=== PATIENT | male | born 1930 | race Caucasian/White ===

== ENCOUNTER 2017-03-31 16:38 | Inpatient (IN) ==
--- NOTE | 2017-03-31 17:08 | EKG Report ---
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
[2017-03-31] MEDS ORDERED: ENOXAPARIN 100 MG/ML SYRINGE SUBCUT STA (17:20)
[2017-03-31] MEDS ORDERED: ASPIRIN 325 MG TABLET PO STA (17:20)
[2017-03-31] MEDS ORDERED: METOPROLOL TARTRATE 5 MG/5 ML VIAL IV STA (17:25)
[2017-03-31] MEDS ORDERED: NITROGLYCERIN 2% OINT 1 INCH/GM PACK TOP STA (17:25)
[2017-03-31] MEDS ORDERED: ALUM/MAG/SIMETH/LIDO VISC 1:1 30 ML BOTTLE PO STA (17:34)
[2017-03-31] MEDS ORDERED: FUROSEMIDE 40 MG/4 ML VIAL IV STA (17:34)
[2017-03-31] MEDS ORDERED: ALBUTEROL/IPRATROPIUM 3 ML NEB RESP TX STA (17:34)
[2017-03-31] MEDS ORDERED: MORPHINE 2 MG/1 ML SYRINGE IV STA (17:34)
[2017-03-31] MEDS ORDERED: ONDANSETRON 4 MG/2 ML VIAL IV STA ×2 (17:34→21:40)
[2017-03-31 17:45] LABS: Basophils % 0.5 % (0.0-0.8); Eosinophils # 0.2 10*3/uL (0.0-0.87); Eosinophils % 1.7 % (0.00-10.9); Hematocrit 39.4 VOL% (42.0-52.0); Immature Granulocytes % 0.5 %; Immature Granulocytes Absolute 0.04 #; Lymphocytes # 2.3 10*3/uL (1.4-4.0); Lymphocytes % 26.1 % (21.2-54.2); Mean Corpuscular HGB Conc 35.5 GM/DL (32-36); Mean Corpuscular Hemoglobin 31 PG (27-34); Mean Corpuscular Volume 87.6 FL (87-102); Mean Platelet Volume 11.1 FL (9.6-12.0); Monocytes # 0.8 10*3/uL (0.11-0.8); Neutrophils # 5.5 10*3/uL (1.4-7.4); Neutrophils % 62.2 % (38.7-73.9); Platelet Count 169 T/CUMM (130-400); Red Cell Distribution Width 14.1 % (9.3-17.3); White Blood Count 8.8 T/CUMM (4-12)
[2017-03-31] MEDS ORDERED: MORPHINE 2 MG/1 ML SYRINGE ONE (17:45)
[2017-03-31] MEDS ORDERED: NITROGLYCERIN 2% OINT 1 INCH/GM PACK TOP ONE (17:45)
[2017-03-31] MEDS ORDERED: ENOXAPARIN 100 MG/ML SYRINGE SUBCUT ONE (17:45)
[2017-03-31] MEDS ORDERED: ONDANSETRON 4 MG/2 ML VIAL ONE ×3 (17:45→23:14)
[2017-03-31] MEDS ORDERED: ASPIRIN 325 MG TABLET ONE (17:46)
[2017-03-31] MEDS ORDERED: ALUM/MAG/SIMETH/LIDO VISC 1:1 30 ML BOTTLE PO ONE (17:46)
[2017-03-31] MEDS ORDERED: FUROSEMIDE 20 MG/2 ML VIAL ONE ×2 (17:46→19:16)
[2017-03-31] MEDS ORDERED: METOPROLOL TARTRATE 5 MG/5 ML VIAL IV ONE (17:46)
[2017-03-31 17:55] LABS: D-Dimer 0.7 MG/L FEU; INR 2.1
[2017-03-31 18:01] LABS: PT Patient Result 22.7 SECS
--- NOTE | 2017-03-31 18:39 | Emergency Department Note ---
ISybil Emily, am scribing for, and in the presence of, Jose Ayala MD 17: 51. Lucy Martin Charles R, MD, personally performed the services described in this documentation, ascribed by Praveena Devine in my presence, and it is both accurate and complete 839 . Arrival - Arrival Chief Complaint: Chest Pain Stated Complaint: CHEST DISCOMFORT ED Nursing Triage Note: Chest pain onset approx 30 min PATIENT REGISTRATION REPRESENTATIVE - pt has discoloration to lower extremities - pt was visiting and started having the chest pain - pt was having some confusion PATIENT REGISTRATION REPRESENTATIVE Mode of Arrival: Wheelchair Limitations: No Limitations Source: Patient Time Seen by Provider: 03/31/17 16:58 - History of Present Illness HPI Narrative: Pt is a 86 male who came to ED with c/o epigastric pain that worsened today while visiting her in the hospital. Pt notes it has been ongoing for sometime, but unknown. Pt is poor historian, but denies blood thinners. He reports staying in the sun constantly with yard work and such. Pt has associated sxs of ESTRELLA, SOB. He has some discoloration to lower extremities, from his calves to toes, but denies pain bilaterally. Pt states he is a former smoker. PMHx of COPD. Onset (ago): hour(s) Consistency: constant Severity: mild, moderate Severity scale (1-10): 4 Quality: aching, fullness Allergies/Adverse Reactions: Allergies Allergy/AdvReac Type Severity Reaction Status Date / Time No Known Allergies Allergy Unverified 03/31/17 16:43 Home Medications: Home Medications Medication Instructions Recorded Confirmed Type No Known Home Medications [No 03/31/17 03/31/17 History Known Home Medications] Review of System - Review of System 12 point system: reviewed and no additional remarkable complaints except as stated - Review of System Constitutional: Absent: fever, weakness Head/Ears/Nose/Throat: Absent: nasal drainage Respiratory: Present: respiratory distress (SOB) Cardiovascular: Present: chest pain, dyspnea on exertion Gastrointestinal: Absent: abdominal pain, nausea, vomiting Musculoskeletal: Absent: arm pain, back pain, leg pain, neck pain Skin: Present: other (discoloration in lower extremities). Absent: rash Neurological: Absent: headache, numbness, paresthesias, abnormal gait Psychiatric: Absent: anxiety Medical,Surgical,& Family Hx - Social History Smoking Status: Never smoker Frequency of Alcohol Use: None Type of Drug Use: None Marital Status: Lives With:: Spouse Functional capacity: independent ambulation Exam Vital Signs: Vital Signs Temperature 97.1 F L 03/31/17 16:55 Pulse Rate 71 03/31/17 18:33 Respiratory Rate 22 03/31/17 18:33 Blood Pressure 132/95 03/31/17 16:55 O2 Sat by Pulse Oximetry 97 03/31/17 18:58 - General General appearance: alert, in no apparent distress - Head Head exam: Present: atraumatic, normocephalic - Eye Eye exam: Present: PERRL, EOMI - ENT ENT exam: Present: mucous membranes moist. Absent: mucous membranes dry - Neck Neck exam: Present: full ROM. Absent: tenderness - Chest Chest inspection: Present: symmetric chest wall rise. Absent: tenderness - Respiratory Respiratory exam: Present: rhonchi (bilaterally). Absent: accessory muscle use , respiratory distress - Cardiovascular Cardiovascular exam: Present: irregular rhythm, normal heart sounds - Abdominal Exam Abdominal exam: Present: soft, tenderness (upper epigastric). Absent: distention, guarding, rebound - Extremities Exam Extremities exam: Present: full ROM, normal capillary refill (with fair pedal pulses). Absent: tenderness (discoloration bilaterally to lower extremities, no tenderness or open wounds), pedal edema - Neurological Exam Neurological exam: Present: alert, oriented X3, CN II-XII intact. Absent: motor sensory deficit - Psychiatric Psychiatric exam: Present: flat affect - Skin Skin exam: Present: warm, dry Course - Consultations Consultation #1: Hospitalist will admit patient Time: 20:30 Results - Labs CBC & BMP: 03/31/17 17:31 Lab Results: I have reviewed the patients labs Labs: Laboratory Tests 03/31/17 03/31/17 03/31/17 17:31 17:31 17:31 D-Dimer, Quantitative 0.7 B-Natriuretic Peptide 173 H Lipase 110.0 Laboratory Tests 03/31/17 17:31 Urine Color Straw Urine Appearance Clear Urine pH 5.0 Ur Specific [place] 1.005 Urine Blood Small Urine Urobilinogen < 2.0 H Urine RBC 1 Urine WBC 1 Hyaline Casts 1 - Diagnostic Findings Procedure: Chest x-ray: report reviewed by me (Mild/moderate cardiomegaly. Minimal perihilar opacity suspicious for pulmonary edema. Small right pleural effusion. Constellation of findings suspicious for CHF. Visualized osseous and surrounding soft tissue structures appear grossly unchanged.) Disposition Clinical Impression: Chest pain, Atrial fib/flutter, transient, CHF (congestive heart failure) Case discussed with: patient Disposition: Still a Patient Condition: Stable Time of Disposition: 20:31
--- NOTE | 2017-03-31 18:49 | XRay Report ---
XR chest 2V Indication: Chest pain Comparison: Chest x-ray dated July 02, 2016 Technique: Frontal and lateral views of the chest Findings: Mild/moderate cardiomegaly. Minimal perihilar opacity suspicious for pulmonary edema. Small right pleural effusion. Constellation of findings suspicious for CHF. Visualized osseous and surrounding soft tissue structures appear grossly unchanged. IMPRESSION: As above. PROCEDURE INTERPRETED AT [facility] DEPARTMENT OF RADIOLOGY Final Report Signed by: Dr Diego Garsia
[2017-03-31 19:03] LABS: Apearance,Urine CLEAR (Clear); Bilirubin,Urine Negative (Negative); Blood, Urine Small mg/dL (Negative); Glucose,Urine (UA) Negative (Negative); Hyaline Casts,Urine 1 /LPF (0-3); Ketones,Urine Negative (Negative); Nitrite,Urine Negative (Negative); Protein,Urine Negative; RBC,Urine 1 /HPF (0-4); Urine Color Straw (Yellow); Urine Specific Gravity 1.005 (1.001-1.035); Urine Urobilinogen < 2.0 EU/DL (0.2-1.0); WBC,Urine 1 /HPF (0-6)
[2017-03-31] MEDS ORDERED: FUROSEMIDE 20 MG/2 ML VIAL IV STA (19:09)
[2017-03-31 20:49] LABS: Albumin 3.6 G/DL (3.4-5.0); Bilirubin,Total 1.2 MG/DL (0.2-1.0); Calcium 9.2 MG/DL (8.5-10.1); Osmolality,Calculated 284.3 MOS/KG (273-304); Potassium 4.3 MMOL/L (3.5-5.1); Total Protein 7.5 G/DL (6.4-8.3)
--- NOTE | 2017-03-31 21:59 | Hospitalist History & Physical ---
Assessment and Plan (1) Atrial fib/flutter, transient Status: Acute Current Visit: Yes (2) Chest pain Status: Acute Current Visit: Yes (3) Increase in transaminases Status: Acute Current Visit: Yes (4) Bronze skin Status: Acute Assessment and plan: We will admit patient our service. He has mild bump in his transaminases unguinal order liver ultrasound. His skin has a bronze appearance unsure of the calls. Will do some preliminary tests to check for adrenal insufficiency. Patient does not give me much information about his past medical history. He just says he used to have heart problems but does not anymore. He sees a meter mechanic. I will consult cardiology for their evaluation regarding this chest pain. Current Visit: Yes History of Present Illness Chief complaint: Chest pain History of present illness: Mr. Keating is a 86 year old male with past medical history of arthritis and "heart problems" presented to our ER tonight. Patient reports chest pain. He is a very poor historian although is not demented. He says the pain is across his chest. He denies shortness of breath but he does admit diaphoresis. He says there is no radiation. Patient denies any current medical problems. His EKG is consistent with atrial fibrillation along with his rhythm strip. I was consulted to admit the patient. Home Medications Medication Instructions Recorded Confirmed Type No Known Home Medications [No 03/31/17 03/31/17 History Known Home Medications] Allergies Allergy/AdvReac Type Severity Reaction Status Date / Time No Known Allergies Allergy Unverified 03/31/17 16:43 Medical,Surgical,& Family Hx - Medical History Other: History of: Miscellaneous Medical Problems (Arthritis, "heart problems") - Surgical History Abdominal Surgeries: Surgical HX of: Appendectomy - Social History Smoking Status: Never smoker Frequency of Alcohol Use: None Type of Drug Use: None 12 point system: reviewed and no additional remarkable complaints except as stated Exam - Constitutional Vitals: Period Temp Pulse Resp BP Sys/Abraham Pulse Ox Last 24 Hr 97.1 F-97.1 F 70-71 20-27 132-170/95-102 94-97 General appearance: over weight - Head Head exam: Present: normal inspection - Eye Eye exam: Present: EOMI Pupils: Present: JORDY - ENT ENT exam: Present: normal exam - Neck Neck exam: Present: normal inspection - Respiratory Respiratory exam: Present: clear to auscultation bilaterally - Cardiovascular Cardiovascular exam: Present: irregular rhythm - GI/Abdominal GI/Abdominal exam: Present: normal bowel sounds - Extremities Exam Extremities exam: Present: other (Patient's skin on his lower extremities has a bronze appearance.) - Back Exam Back exam: Present: normal inspection - Neurological Exam Neurological exam: Present: alert - Psychiatric Psychiatric exam: Present: normal affect Results - Labs CBC & BMP: 03/31/17 17:31 03/31/17 17:56
[2017-03-31] MEDS ORDERED: ONDANSETRON 4 MG/2 ML VIAL IV PRN (22:27)
[2017-04-01] MEDS ORDERED: PROMETHAZINE 25 MG/1 ML VIAL IM PRN (00:32)
[2017-04-01] MEDS: NITROGLYCERIN 2% OINT 1 INCH/GM PACK TOP SCH ×4 (00:43→18:28)
[2017-04-01 01:45] LABS: Risk Ratio 4.17; VLDL CHOLESTEROL 17.6 MG/DL
--- NOTE | 2017-04-01 06:33 | EKG Report ---
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
--- NOTE | 2017-04-01 08:00 | Ultrasound Report ---
History is elevated liver transaminase The liver is 12.5 cm in length. Hepatic echotexture is within normal limits Patient is status post cholecystectomy Common bile duct measures up to 8 mm. No obvious intrahepatic ductal dilatation seen Common bile duct measured 4 mm on the study of December 2007 There is been interval enlargement of a 4.4 cm cyst with a minimal thin septation in the visualized right kidney. Right renal visualization is somewhat limited by bowel gas and body habitus. Most of the pancreas IVC and aorta are obscured by overlying bowel gas. Impression: 1. Dilatation of the common bile duct up to 8 mm. This could be related to patient age and prior cholecystectomy but is more prominent than on study of 2007. Correlation with laboratory values necessary to exclude distal obstruction 2. Prior cholecystectomy 3. Limited visualization of midline retroperitoneal structures 4. 4.4 cm minimally complicated right renal cyst The Ultrasound images were captured and stored. PROCEDURE INTERPRETED AT [facility] DEPARTMENT OF RADIOLOGY Final Report Signed by: Dr. Oma Ellington
[2017-04-01 08:26] LABS: PT Patient Result 21.8 SECS
[2017-04-01 08:47] LABS: Albumin 3.7 G/DL (3.4-5.0); Calcium 8.6 MG/DL (8.5-10.1); Osmolality,Calculated 281.4 MOS/KG (273-304); Potassium 4.2 MMOL/L (3.5-5.1); Total Protein 7.6 G/DL (6.4-8.3)
[2017-04-01] MEDS: ASPIRIN EC 325 MG TABLET PO SCH (09:10)
--- NOTE | 2017-04-01 10:39 | Cardiology Consult Note ---
I, Angella Gastelum RN, am scribing for, and in the presence of, Sebastian Skaggs MD 10:36. Assessment and Plan - Time spent with patient Time spent with patient: Greater than 30 minutes (Due to assessment, planning, documentation, and medication review) (1) Abdominal pain Status: Acute Assessment and plan: The patient had some abdominal pain associated with elevated liver function test and a dilated common bile duct. He may need gastroenterology consultation , although his symptoms have resolved now. Current Visit: Yes (2) Chest pain Status: Acute Assessment and plan: This was really an abdominal pain, and is associated with a bump in liver enzymes. He has a dilated common bile duct. He may need gastrointestinal consultation and/or evaluation. I do not think this is anything cardiac. Current Visit: Yes (3) Increase in transaminases Status: Acute Assessment and plan: Patient has a new increase in his transaminases. His previous labs in January were normal. He had some abdominal pain and has a dilated common bile duct. Workup by gastroenterology may be indicated. Current Visit: Yes (4) Chronic atrial fibrillation Status: Chronic Assessment and plan: Ventricular response has been well controlled with regimen of digoxin 125 mcg by mouth daily and diltiazem ER 180 mg by mouth daily. He is chronically anticoagulated with Coumadin 5 mg by mouth daily. Current Visit: Yes (5) Hypertension Status: Chronic Assessment and plan: His blood pressure has been fairly well controlled since admission. Current Visit: Yes (6) Diabetes Status: Chronic Assessment and plan: Well controlled at this time. Continue current plan of care. Current Visit: Yes (7) Hypothyroidism Status: Chronic Assessment and plan: Will need Frederick continued when reconciled in home medication list. Normal TSH on blood work in January. Current Visit: Yes (8) Hyperlipidemia Status: Chronic Assessment and plan: Continue current plan of care. FLP this admission unremarkable. 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 SKAGGS Mr. Keating is a 86 year old white male with risk factor significant for: age, hypertension, diabetes, dyslipidemia, and previous tobacco use. Past medical history includes chronic atrial fibrillation and atrial flutter, hypothyroidism , chronic renal insufficiency, COPD, and GERD. He does have symptoms of sleep apnea, and sleep study evaluation has been offered to patient and family before , but it has been declined due to his age and symptoms being mild. He was last seen in clinic on January 28 for routine follow-up. He denied any cardiac symptoms , and his hypertension and diabetes were well controlled on current regimen. Patient is chronically anticoagulated with Coumadin. Mr. Keating is why is currently admitted to telemetry unit, and while he was visiting her yesterday afternoon, he apparently had some "indigestion" and was taken to the ER for evaluation. He describes a discomfort in his upper abdominal region. The symptoms were moderate in severity. However, these symptoms have completely resolved and on exam today it is benign. He did not have any nausea or vomiting. He denies any gastrointestinal blood loss. He tells me that his gallbladder has been removed previously. The patient also has some mild slowly progressive dementia and at times is a bit confused. While in the ER, EKG and cardiac enzymes benign for ischemic finding. Bilirubin and AST noted to be elevated, and it is noted that they were previously normal at clinic visit in January. UA negative. Patient was admitted for observation to telemetry unit. Cardiology consulted for evaluation of chest pain. Liver ultrasound obtained shows CBD up to 8 mm and is more prominent when compared to previous study in 2007. Troponin levels have remained normal. Patient seen and examined in room on telemetry floor. This morning, there is no family present with him. He is awake and alert, and somewhat agitated. He reports that he has not experienced any chest pain, and he verbalizes that he is ready to go home "now." Reports the reason that he sought evaluation in the emergency room last night was due to "indigestion in the left ankle." He denies experiencing any dyspnea at rest or with exertion. Atrial fibrillation with controlled ventricular rates in the 70s. BP 145/80. Current Medications Aspirin () 325 mg PO DAILY [facility] Enoxaparin Sodium (Lovenox) 40 mg SUBCUT Q24H [facility] Nitroglycerin (Nitro Bid Oint) 0.5 inch TOP Q6HR MARC Last Admin: 04/01/17 05:49 Dose: 0.5 inch Ondansetron HCl (Zofran Inj) 4 mg IV Q4H PRN PRN Reason: Nausea/Vomiting Last Admin: 03/31/17 23:25 Dose: 4 mg Promethazine HCl (Phenergan Inj) 25 mg IM Q6H PRN PRN Reason: Nausea/Vomiting Last Admin: 04/01/17 00:43 Dose: 25 mg CC: Leslie Davies MD - Home Medications and Allergies Home Medications: Home Medications Medication Instructions Recorded Confirmed Type No Known Home Medications [No 03/31/17 03/31/17 History Known Home Medications] Allergies/Adverse Reactions: Allergies Allergy/AdvReac Type Severity Reaction Status Date / Time No Known Allergies Allergy Unverified 03/31/17 16:43 ROS unobtainable: due to mental status Medical,Surgical,& Family Hx - Medical History Cardio: History of: Cardiac Dysrhythmia, Hypertension, FL (FL?) Neurology: History of: Cerebrovascular Accident, Dementia Endocrine: History of: Dyslipidemia, Thyroid Disorder Respiratory: History of: COPD Renal: History of: Renal Problems Gastrointestinal: History of: GERD, GI Problems (had feeding tube at one time) Musculoskeletal: History of: Musculoskeletal Problems (arthritis) Hematology: No history of: Bleeding Problems Other: History of: Miscellaneous Medical Problems (Arthritis, "heart problems") No history of: Cancer, HIV - Surgical History Cardiac Surgeries: Sugical HX of: Cardiac Catheterization Abdominal Surgeries: Surgical HX of: Appendectomy, Cholecystectomy - Family History Family History: Reports;: Family Cancer (mother "female cancer"), Family Stroke (mother,father) - Social History Smoking Status: Former smoker Frequency of Alcohol Use: None Type of Drug Use: None Marital Status: Functional capacity: wheelchair bound Physical Examination Vital Signs Temp Pulse Resp BP Pulse Ox 97.1 F L 71 20 170/102 94 L 03/31/17 16:43 03/31/17 16:43 03/31/17 16:43 03/31/17 16:43 03/31/17 16:43 General: Present: No Apparent Distress, Other (Elderly, frail) HEENT: Present: Normocephaly, Mucus Membranes Moist. Absent: Pallor Neck: Present: Supple Neck, Midline Trachea, No JVD/HJR, No Bruit Cardiac: Present: Irregularly Regular, Systolic Murmur. Absent: Tachycardia, Bradycardia Lungs: Present: Clear Ascult./Percussion, No Wheeze, Rales, Rhonchi. Absent: Oxygen Neuro: Present: Grossly Intact. Absent: Numbness, Tingling, Weakness, Resting Tremor, Essential Tremor Abdomen: Present: Soft, Active Bowel Sounds Skin: Absent: Rash, Suspicious Lesions, Bruising Musculoskeletal: Present: No Fluid Collection Extremities: Present: No Clubbing, No Cyanosis, No Edema, Edema (1+ pretibial), Capillary Refill (Normal), Other (brawny, discolored skin BLE's from meier areas and distal) Result/EKG - Labs CBC & BMP: 03/31/17 17:31 04/01/17 08:01 Lab Results: I have reviewed the past 24 hour labs Labs: Laboratory Results - last 24 hr 03/31/17 03/31/17 03/31/17 00:51 17:31 17:31 WBC 8.8 RBC 4.50 Hgb 14.0 Hct 39.4 L MCV 87.6 MCH 31 MCHC 35.5 RDW 14.1 Plt Count 169 MPV 11.1 Neut % (Auto) 62.2 Lymph % (Auto) 26.1 [place] % (Auto) 9.0 Eos % (Auto) 1.7 Baso % (Auto) 0.5 Neut # (Auto) 5.5 Lymph # (Auto) 2.3 [place] # (Auto) 0.8 Eos # (Auto) 0.2 Baso # (Auto) 0.0 Immature Gran % 0.5 Nucleated RBC % 0.0 Immature Gran # 0.04 Nucleated RBCs # 0.00 INR PT Patient/Control Mix D-Dimer, Quantitative Sodium Potassium Chloride Carbon Dioxide Anion Gap BUN Creatinine GFR Calculation BUN/Creatinine Ratio Glucose Calculated Osmolality Calcium Magnesium Total Bilirubin AST ALT Alkaline Phosphatase Troponin I 0.019 0.027 B-Natriuretic Peptide Total Protein Albumin Globulin Albumin/Globulin Ratio Triglycerides Cholesterol LDL Cholesterol VLDL Cholesterol HDL Cholesterol Heart Disease Risk Ratio Lipase Urine Color Urine Appearance Urine pH Ur Specific [place] Urine Protein Urine Glucose (UA) Urine Ketones Urine Blood Urine Nitrate Urine Bilirubin Urine Urobilinogen Urine Leukocytes Urine RBC Urine WBC Hyaline Casts Ur Culture Indicated? 03/31/17 03/31/17 03/31/17 17:31 17:31 17:31 WBC RBC Hgb Hct MCV MCH MCHC RDW Plt Count MPV Neut % (Auto) Lymph % (Auto) [place] % (Auto) Eos % (Auto) Baso % (Auto) Neut # (Auto) Lymph # (Auto) [place] # (Auto) Eos # (Auto) Baso # (Auto) Immature Gran % Nucleated RBC % Immature Gran # Nucleated RBCs # INR 2.1 PT Patient/Control Mix 22.7 D-Dimer, Quantitative 0.7 Sodium Potassium Chloride Carbon Dioxide Anion Gap BUN Creatinine GFR Calculation BUN/Creatinine Ratio Glucose Calculated Osmolality Calcium Magnesium 2.0 Total Bilirubin AST ALT Alkaline Phosphatase Troponin I B-Natriuretic Peptide Total Protein Albumin Globulin Albumin/Globulin Ratio Triglycerides Cholesterol LDL Cholesterol VLDL Cholesterol HDL Cholesterol Heart Disease Risk Ratio Lipase 110.0 Urine Color Straw Urine Appearance Clear Urine pH 5.0 Ur Specific [place] 1.005 Urine Protein Negative Urine Glucose (UA) Negative Urine Ketones Negative Urine Blood Small Urine Nitrate Negative Urine Bilirubin Negative Urine Urobilinogen < 2.0 H Urine Leukocytes Negative Urine RBC 1 Urine WBC 1 Hyaline Casts 1 Ur Culture Indicated? Not indicated 03/31/17 03/31/17 03/31/17 17:31 17:56 20:41 WBC RBC Hgb Hct MCV MCH MCHC RDW Plt Count MPV Neut % (Auto) Lymph % (Auto) [place] % (Auto) Eos % (Auto) Baso % (Auto) Neut # (Auto) Lymph # (Auto) [place] # (Auto) Eos # (Auto) Baso # (Auto) Immature Gran % Nucleated RBC % Immature Gran # Nucleated RBCs # INR PT Patient/Control Mix D-Dimer, Quantitative Sodium 141 Potassium 4.3 Chloride 108 H Carbon Dioxide 20 L Anion Gap 17.3 H BUN 22 H Creatinine 1.40 H GFR Calculation 58 BUN/Creatinine Ratio 15.00 Glucose 109 H Calculated Osmolality 284.3 Calcium 9.2 Magnesium Total Bilirubin 1.20 H AST 120 H ALT 55 Alkaline Phosphatase 100 Troponin I 0.020 B-Natriuretic Peptide 173 H Total Protein 7.5 Albumin 3.6 Globulin 3.9 H Albumin/Globulin Ratio 0.9 L Triglycerides Cholesterol LDL Cholesterol VLDL Cholesterol HDL Cholesterol Heart Disease Risk Ratio Lipase Urine Color Urine Appearance Urine pH Ur Specific [place] Urine Protein Urine Glucose (UA) Urine Ketones Urine Blood Urine Nitrate Urine Bilirubin Urine Urobilinogen Urine Leukocytes Urine RBC Urine WBC Hyaline Casts Ur Culture Indicated? 04/01/17 00:51 WBC RBC Hgb Hct MCV MCH MCHC RDW Plt Count MPV Neut % (Auto) Lymph % (Auto) [place] % (Auto) Eos % (Auto) Baso % (Auto) Neut # (Auto) Lymph # (Auto) [place] # (Auto) Eos # (Auto) Baso # (Auto) Immature Gran % Nucleated RBC % Immature Gran # Nucleated RBCs # INR PT Patient/Control Mix D-Dimer, Quantitative Sodium Potassium Chloride Carbon Dioxide Anion Gap BUN Creatinine GFR Calculation BUN/Creatinine Ratio Glucose Calculated Osmolality Calcium Magnesium Total Bilirubin AST ALT Alkaline Phosphatase Troponin I B-Natriuretic Peptide Total Protein Albumin Globulin Albumin/Globulin Ratio Triglycerides 88 Cholesterol 192 LDL Cholesterol 121.0 VLDL Cholesterol 17.6 HDL Cholesterol 46 Heart Disease Risk Ratio 4.17 Lipase Urine Color Urine Appearance Urine pH Ur Specific [place] Urine Protein Urine Glucose (UA) Urine Ketones Urine Blood Urine Nitrate Urine Bilirubin Urine Urobilinogen Urine Leukocytes Urine RBC Urine WBC Hyaline Casts Ur Culture Indicated? - Diagnostic Findings Procedure: Chest x-ray: image reviewed by me, report reviewed by me, Ultrasound : image reviewed by me, report reviewed by me - EKG EKG results: interpreted by me, no acute changes EKG shows: atrial fibrillation Giles Martin Michael, MD, personally performed the services described in this documentation, ascribed by Angella Gastelum RN in my presence, and it is both accurate and complete 039 .
--- NOTE | 2017-04-01 12:16 | Gastrointestinal Consult Note ---
Assessment and Plan (1) Abdominal pain Status: Acute Assessment and plan: 04/01-Admitted with complaints of epigastric pain, radiating across chest w/o associated symptoms. Pain now resolved. No prior history of endoscopy in the past located. Elevated LFTs as well with post cholecystectomy 2007. Plan and addendum to follow by Dr Bauer. Current Visit: Yes (2) Increase in transaminases Status: Acute Assessment and plan: 04/01-Findings on admission of elevated LFTs now more elevated today. Liver US findings noted as below with dilated CBD at 8mm more prominent than 2008 cholecystectomy (4mm). Admitted with epigastric pain. No other associated symptoms. Check hepatitis panel. Plan and addendum to follow by Dr Bauer. Current Visit: Yes History of Present Illness Chief complaint: Elevated LFTs History of present illness: Mr. Keating is a 86 year old male who was admitted to the hospital with onset of chest pain. Pt is a poor historian and no family available during visit. Information is obtained from chart review. Pt was admitted to the hospital on yesterday with complaints of epigastric pain while he was reportedly visiting his here in the hospital. He reported at admission that he has had this for a period of time now. He denies any other associated symptoms along with this. He states the pain was in his epigastric region and radiated across his chest with some diaphoresis. He was found on admission on EKG to have atrial fibrillation. He also has a prior history of COPD, DM, atrial fibrillation, renal insufficiency, and GERD. Upon admission, he was also noted to have an elevation in his LFTs on admission with initial bilirubin 1.2, AST 120. Pt is noted today to have an increase today with bilirubin 2.0, AST 615, ALT 540, alk phos 172. He is reported to have had normal LFTs in clinic in January at [facility]. Lipase levels were normal at 110. UA without findings of UTI. He is on chronic Coumadin therapy according to cardiology. He is noted to have a history of cholecyst[place] [address] Jaimes with normal cholangiogram. Liver ultrasound on admission shows dilated CBD at 8mm, post cholecystectomy, however more prominent from 2008 study (4mm) with no other acute findings. Unable to locate any endoscopy history at this time. He states his abdominal/chest pain is resolved at this time. Cardiology has evaluated and does not feel this is of cardiac origin at this time. Home Medications Medication Instructions Recorded Confirmed Type No Known Home Medications [No 03/31/17 03/31/17 History Known Home Medications] Allergies Allergy/AdvReac Type Severity Reaction Status Date / Time No Known Allergies Allergy Unverified 03/31/17 16:43 Medical,Surgical,& Family Hx - Medical History Cardio: History of: Cardiac Dysrhythmia, Hypertension, [place] (KY?) Neurology: History of: Cerebrovascular Accident, Dementia Endocrine: History of: Dyslipidemia, Thyroid Disorder Respiratory: History of: COPD Renal: History of: Renal Problems Gastrointestinal: History of: GERD, GI Problems (had feeding tube at one time) Musculoskeletal: History of: Musculoskeletal Problems (arthritis) Hematology: No history of: Bleeding Problems Other: History of: Miscellaneous Medical Problems (Arthritis, "heart problems") No history of: Cancer, HIV - Surgical History Cardiac Surgeries: Sugical HX of: Cardiac Catheterization Abdominal Surgeries: Surgical HX of: Appendectomy, Cholecystectomy - Family History Family History: Reports;: Family Cancer (mother "female cancer"), Family Stroke (mother,father) - Social History Smoking Status: Never smoker Frequency of Alcohol Use: None Type of Drug Use: None 12 point system: reviewed and no additional remarkable complaints except as stated - Constitutional Constitutional: Present: as per HPI - EENT Eyes: Present: as per HPI Ears: Present: as per HPI Nose, mouth and throat: Present: as per HPI - Cardiovascular Cardiovascular: Present: as per HPI - Respiratory Respiratory: Present: as per HPI - Gastrointestinal Gastrointestinal: Present: as per HPI, abdominal pain - Genitourinary Genitourinary: Present: as per HPI - Neurological Neurological: Present: as per HPI - Psychiatric Psychiatric: Present: as per HPI - Endocrine Endocrine: Present: as per HPI - Hematologic/Lymphatic Hematologic/Lymphatic: Present: as per HPI Exam - Constitutional Vitals: Period Temp Pulse Resp BP Sys/Abraham Pulse Ox Last 24 Hr 96.9 F-97.8 F 66-82 13-27 127-170/71-106 94-99 General appearance: normal weight, no acute distress - Head Head exam: Present: normal inspection, normocephalic - Eye Eye exam: Present: other (lids and conjunctiva unremarkable). Absent: scleral icterus - ENT ENT exam: Present: normal exam, normal oropharynx - Neck Neck exam: Present: normal inspection - Respiratory Respiratory exam: Present: clear to auscultation bilaterally. Absent: rales, rhonchi, wheezes - Cardiovascular Cardiovascular exam: Present: regular rate and rhythm. Absent: diastolic murmur , JVD, systolic murmur - GI/Abdominal GI/Abdominal exam: Present: normal bowel sounds, soft. Absent: ascites, distended, mass, organomegaly, tenderness - Extremities Exam Extremities exam: Present: normal inspection, full ROM - Back Exam Back exam: Present: normal inspection - Neurological Exam Neurological exam: Present: alert, altered - Psychiatric Psychiatric exam: Present: normal affect, normal mood - Skin Skin exam: Present: normal color, warm, dry Results - Labs CBC & BMP: 03/31/17 17:31 04/01/17 08:01 Lab Results: I have reviewed the past 24 hour labs - Diagnostic Findings Procedure: Ultrasound: report reviewed by me
--- NOTE | 2017-04-01 12:31 | Hospitalist Progress Note ---
Assessment and Plan (1) Increase in transaminases Status: Acute Assessment and plan: Elevated liver enzymes worse today, dilation of CBD, bronze skin, iron studies and hemochromatosis analysis Current Visit: Yes (2) CHF (congestive heart failure) Status: Acute Assessment and plan: bnp only 173, swelling in his legs. echo Current Visit: Yes (3) Diabetes Status: Chronic Assessment and plan: hemoglobin A1c Current Visit: Yes (4) Hypertension Status: Chronic Assessment and plan: coreg 3.125 mg po bid Current Visit: Yes (5) Hypothyroidism Status: Chronic Assessment and plan: check tsh, need list of meds Current Visit: Yes (6) Chest pain Status: Acute Assessment and plan: serial troponins, reviewed, Dr Skaggs feels this is noncardiac. Current Visit: Yes (7) Chronic atrial fibrillation Status: Chronic Assessment and plan: rate controlled without medications Current Visit: Yes (8) Dementia Status: Acute Assessment and plan: needs aricept at night, hold off starting any new meds due to liver dysfunction Current Visit: Yes Hospitalist: Subjective Interval history: I am also taking care of patient's . Patient was taken to the emergency room last night for acute chest pain and was found to have transient atrial fib. Patient is mostly likely on Coumadin at home. Family was concerned because he also is noncompliant with his medicines at home. In fact he does not even have a list or know what they are. Patient has pretty advanced dementia and cannot answer most questions. He does have increasing Ángel of his skin in his lower extremities. There also noted elevated liver enzymes. No known history of diabetes. Concerned about hemochromatosis. Exam - Constitutional Vitals: Period Temp Pulse Resp BP Sys/Abraham Pulse Ox Last 24 Hr 96.9 F-97.8 F 66-82 13-27 127-170/71-106 94-99 Exam: Heart Rate-[iRR] Lungs-[CTAB] GI-[+bs soft, NT] Ext-[1+ edema] Neuro [Motor 5/5], [alert and oriented times 1] psych [agitated mood and affect] General [no acute distress] Skin dark bronze Results - Labs CBC & BMP: 03/31/17 17:31 04/01/17 08:01 Lab Results: I have reviewed the past 24 hour labs Labs: Total bili is 2, AST 615, ALT 540, alk phos 172 BNP 173, INR of 2 - Diagnostic Findings Procedure: Ultrasound: report reviewed by me (Dilation of common bile duct up to 8 mm. Prior cholecystectomy.)
[2017-04-01] MEDS ORDERED: DEXTROSE 50% 25 GM/50 ML VIAL IV PRN (12:54)
[2017-04-01] MEDS ORDERED: GLUCAGON 1 MG VIAL IM PRN (12:54)
[2017-04-01 13:26] LABS: PT Patient Result 22.4 SECS; Partial Thromboplastin Time 38.6 SECS (0-40)
[2017-04-01 13:45] LABS: Hepatitis A Ab IgM Quant 0.18 Index; Hepatitis A Ab IgM Result Negative (Negative); Hepatitis B Core IgM Quant 0.13 Index; Hepatitis B Core IgM Result Negative (Negative); Hepatitis B Surface Ag Quant < 0.10 Index; Hepatitis B Surface Ag Result Negative (Negative); Hepatitis C Virus Ab Quant 0.11 Index; Hepatitis C Virus Ab Result Negative (Negative)
[2017-04-01 13:52] LABS: % Iron Saturation 44.7 % (18-50); Ferritin 308.3 ng/ml (26-388)
[2017-04-01 13:58] LABS: Free T4 (Free Thyroxine) 0.72 NG/DL (0.76-1.46); Thyroid Stimulating Hormone 1.32 uIU/ml (0.358-3.74)
[2017-04-01] MEDS: CARVEDILOL 3.125 MG TABLET PO SCH ×2 (16:07→22:53)
[2017-04-01] MEDS: FUROSEMIDE 20 MG/2 ML VIAL IV SCH (16:07)
[2017-04-01] MEDS: INSULIN LISPRO 100 UNIT/ML SUBCUT SCH ×2 (16:40→21:07)
--- NOTE | 2017-04-01 17:48 | ECHO Report ---
Semaj Keating Exam Date: 04/01/2017 14:17 Referring Physician: Technologist: alivia Avelar ARDMS, RVT Age: 86 Ht (in): 74 Wt (lb): 211 Gender: M Exam Location: [facility] Echo Indications: Essential (primary) hypertension, Chest pain, unspecified, Atrial fibrillation, DM, Elevated transaminase, Hypothyroidism, Hyperlipidemia, Dementia BP: 147 / 92 HR: 94 Rhythm: Sinus Technical Quality: IMPRESSIONS Technically difficult study 3+ left atrial enlargement 1-2+ concentric LVH Normal LV systolic function with ejection fraction estimated be 65% without obvious segmental wall motion normality 2+ aortic stenosis (mean and peak gradients of 12/29 mmHg), and 1+ aortic regurgitation 1-2+ tricuspid regurgitation with RVSP 37 mmHg plus RAP Irregular rhythm noted MEASUREMENTS (Male / Female) Normal Values 2D ECHO LV Diastolic Diameter PLAX 4.8 cm 4.2 - 5.9 / 3.9 - 5.3 cm LV Systolic Diameter PLAX 2.2 cm LV Fractional Shortening PLAX 54.5 % IVS Diastolic Thickness 1.4 cm 0.6 - 1.0 / 0.6 - 0.9 cm LVPW Diastolic Thickness 1.4 cm 0.6 - 1.0 / 0.6 - 0.9 cm RV Internal Dim ED PLAX 3.9 cm Aortic Root Diameter 3.0 cm LA Systolic Diameter LX 5.3 cm 3.0 - 4.0 / 2.7 - 3.8 cm DOPPLER TR Peak Velocity 304.0 cm/s TR Peak Gradient 37.0 mmHg FINDINGS Left Ventricle Normal left ventricular cavity size. Mild left ventricular hypertrophy. Left ventricular ejection fraction is estimated at 60+ %. Right Ventricle Mildly increased right ventricular size. Right Atrium The right atrium is mildly enlarged. Left Atrium Moderately increased left atrial size. Mitral Valve Morphologically normal mitral valve. Mild-moderate mitral valve regurgitation. Aortic Valve Aortic valve sclerosis. Mild aortic valve stenosis, mean gradient 73 mmHg, GHASSAN 0.44 cm. Pvje-[id number] aortic valve regurgitation. Tricuspid Valve Morphologically normal tricuspid valve. Mild tricuspid valve regurgitation. Pulmonic Valve Morphologically normal pulmonic valve. Trace pulmonary valve regurgitation. Pericardium Normal pericardium without effusion. Aorta Normal ascending aorta dimension. Poncho Mariee (Electronically Signed) Final Date: 01 April 2017 17:47
[2017-04-01] MEDS ORDERED: ENOXAPARIN 40 MG/0.4 ML SYRINGE SUBCUT SCH (21:00)
[2017-04-02] MEDS: NITROGLYCERIN 2% OINT 1 INCH/GM PACK TOP SCH ×4 (01:32→18:16)
[2017-04-02 05:20] LABS: Basophils # 0.1 10*3/uL (0.0-0.2); Basophils % 0.8 % (0.0-0.8); Eosinophils # 0.2 10*3/uL (0.0-0.87); Eosinophils % 2.5 % (0.00-10.9); Hematocrit 41.6 VOL% (42.0-52.0); Hemoglobin 14.4 GM/DL (14.0-18.0); Immature Granulocytes % 0.5 %; Immature Granulocytes Absolute 0.04 #; Lymphocytes # 2.4 10*3/uL (1.4-4.0); Lymphocytes % 31.1 % (21.2-54.2); Mean Corpuscular HGB Conc 34.6 GM/DL (32-36); Mean Corpuscular Hemoglobin 31 PG (27-34); Mean Corpuscular Volume 88.5 FL (87-102); Mean Platelet Volume 11.9 FL (9.6-12.0); Monocytes # 0.9 10*3/uL (0.11-0.8); Monocytes % 11.9 % (1.7-12.7); Neutrophils # 4.1 10*3/uL (1.4-7.4); Neutrophils % 53.2 % (38.7-73.9); Platelet Count 176 T/CUMM (130-400); Red Cell Distribution Width 14.3 % (9.3-17.3); White Blood Count 7.7 T/CUMM (4-12)
[2017-04-02 06:09] LABS: Albumin 3.4 G/DL (3.4-5.0); Bilirubin,Total 1.3 MG/DL (0.2-1.0); Calcium 8.8 MG/DL (8.5-10.1); Osmolality,Calculated 282.4 MOS/KG (273-304); Potassium 4.2 MMOL/L (3.5-5.1); Total Protein 6.9 G/DL (6.4-8.3)
[2017-04-02] MEDS ORDERED: CARBOXYMETHYLCELLULOSE 1% OPH SOLN BOTH EYES PRN (08:58)
[2017-04-02] MEDS: INSULIN LISPRO 100 UNIT/ML SUBCUT SCH ×4 (08:58→21:30)
[2017-04-02] MEDS ORDERED: FLUTICASONE 50 MCG NASAL SPRAY 16 GM BOTTLE BOTH NARES PRN (08:58)
[2017-04-02] MEDS ORDERED: WARFARIN 5 MG TABLET PO SCH ×2 (09:00→18:00)
[2017-04-02] MEDS: DILTIAZEM CD 180 MG CAPSULE PO SCH ×2 (10:23→21:30)
[2017-04-02] MEDS: ASPIRIN EC 325 MG TABLET PO SCH (10:23)
[2017-04-02] MEDS: ATENOLOL 25 MG TABLET PO SCH (10:23)
[2017-04-02] MEDS: TAMSULOSIN 0.4 MG CAPSULE PO SCH (10:23)
[2017-04-02] MEDS: FUROSEMIDE 20 MG/2 ML VIAL IV SCH ×2 (10:23→16:49)
[2017-04-02] MEDS: FINASTERIDE 5 MG TABLET PO SCH (10:23)
[2017-04-02] MEDS: DIGOXIN 0.125 MG TABLET PO SCH (10:24)
[2017-04-02] MEDS: SERTRALINE 50 MG TABLET PO SCH (10:24)
[2017-04-02] MEDS: PANTOPRAZOLE 40 MG TABLET PO SCH (10:24)
[2017-04-02] MEDS: CARVEDILOL 3.125 MG TABLET PO SCH (10:28)
--- NOTE | 2017-04-02 10:36 | Gastrointestinal Progress Note ---
Assessment and Plan (1) Abdominal pain Status: Acute Assessment and plan: 04/02-No c/o pain, nausea or vomiting. Tolerating diet. LFTs trending downward today. Hemachromatosis panel pending. Plan and addendum to follow by Dr Bauer. 04/01-Admitted with complaints of epigastric pain, radiating across chest w/o associated symptoms. Pain now resolved. No prior history of endoscopy in the past located. Elevated LFTs as well with post cholecystectomy 2007. Plan and addendum to follow by Dr Bauer. Current Visit: Yes (2) Increase in transaminases Status: Acute Assessment and plan: 04/01-Findings on admission of elevated LFTs now more elevated today. Liver US findings noted as below with dilated CBD at 8mm more prominent than 2008 cholecystectomy (4mm). Admitted with epigastric pain. No other associated symptoms. Check hepatitis panel. Plan and addendum to follow by Dr Bauer. Current Visit: Yes Gastroenterology - PN: Subj Interval history: CC: Abdominal pain, elevated LFTs Pt is seen, awake and alert with family at bedside. He states he had an uneventful night. He denies any abdominal pain, nausea or vomiting at this time. Abdomen is soft, nontender. LFTs are noted today to be trending downward with bilirubin at 1.3, AST 203, ALT 330, alk phos 142. Hepatitis panel is negative and hemachromatosis panel is pending at this time. ROS: Denies SOB or chest pain Exam (Progress Note) - Constitutional Vitals: Period Temp Pulse Resp BP Sys/Abraham Pulse Ox Last 24 Hr 96.2 F-97.2 F 82-97 16-20 123-147/77-108 95-97 General appearance: normal weight, no acute distress - Head Head exam: Present: normal inspection, normocephalic - Eye Eye exam: Present: other (lids and conjunctiva unremarkable). Absent: scleral icterus - ENT ENT exam: Present: normal exam, normal oropharynx - Neck Neck exam: Present: normal inspection - Respiratory Respiratory exam: Present: clear to auscultation bilaterally. Absent: rales, rhonchi, wheezes - Cardiovascular Cardiovascular exam: Present: regular rate and rhythm. Absent: diastolic murmur , JVD, systolic murmur - GI/Abdominal GI/Abdominal exam: Present: normal bowel sounds, soft. Absent: ascites, distended, mass, organomegaly, tenderness - Extremities Exam Extremities exam: Present: normal inspection, full ROM - Back Exam Back exam: Present: normal inspection - Neurological Exam Neurological exam: Present: alert, oriented X3 - Psychiatric Psychiatric exam: Present: normal affect, normal mood - Skin Skin exam: Present: normal color, warm, dry Results - Labs CBC & BMP: 04/02/17 04:33 04/02/17 04:33 Lab Results: I have reviewed the past 24 hour labs
[2017-04-02] MEDS: IPRATROPIUM 500 MCG/2.5 ML NEB RESP TX SCH ×3 (12:26→18:52)
--- NOTE | 2017-04-02 12:30 | Cardiology Progress Note ---
Nirav Martin Vanessa, RN, am scribing for, and in the presence of, Sebastian Skaggs MD 12:30. Assessment and Plan - Time spent with patient Time spent with patient: Greater than 30 minutes (1) Abdominal pain Status: Acute Assessment and plan: No further abdominal pain today. Current Visit: Yes (2) Chest pain Status: Resolved Assessment and plan: Patient is not having any anginal complaint. Current Visit: Yes (3) Increase in transaminases Status: Acute Assessment and plan: LFTs are trending down today. Current Visit: Yes (4) Chronic atrial fibrillation Status: Chronic Assessment and plan: Ventricular response has been well controlled with regimen of digoxin 125 mcg by mouth daily and diltiazem ER 180 mg by mouth daily. He is chronically anticoagulated with Coumadin 5 mg by mouth daily. Current Visit: Yes (5) Hypertension Status: Chronic Assessment and plan: He has had some transient significant hypertension with BP up to 168/106. Will need antihypertensive medication adjustments as indicated. Current Visit: Yes (6) Diabetes Status: Chronic Assessment and plan: Well controlled at this time. Continue current plan of care. Current Visit: Yes (7) Hypothyroidism Status: Chronic Assessment and plan: Will need [place] continued when reconciled in home medication list. Normal TSH on blood work in January. Current Visit: Yes (8) Hyperlipidemia Status: Chronic Assessment and plan: Continue current plan of care. FLP this admission unremarkable. Current Visit: Yes Cardiology - PN: Subj Interval history: PRIMARY RADIO MACHINIST: DR. SKAGGS SUMMARY: Mr. Keating is a 86 year old white male with risk factors significant for: age, hypertension, diabetes, dyslipidemia, and previous tobacco use. Past medical history includes atrial fibrillation and atrial flutter, hypothyroidism, chronic renal insufficiency, COPD, and GERD. He does have symptoms of sleep apnea, and sleep study evaluation has been offered to patient and family before , but it has been declined due to his age and symptoms being mild. He was last seen in clinic on January 28 for routine follow-up. He denied any cardiac symptoms , and his hypertension and diabetes were well controlled on current regimen. Patient is chronically anticoagulated with Coumadin. Patient was visiting his who is currently an inpatient on the telemetry unit when he developed indigestion and epigastric discomfort and was taken to the ER for evaluation. The symptoms were moderate in severity. However, these symptoms have completely resolved and on exam today it is benign. He did not have any nausea or vomiting. He denies any gastrointestinal blood loss. He tells me that his gallbladder has been removed previously. The patient also has some mild slowly progressive dementia and at times is a bit confused. While in the ER, EKG and cardiac enzymes benign for ischemic finding. AST 615, ALT 540, bilirubin 2.0, and LFTs were normal on blood work in January 2017. UA negative. Patient was admitted for observation to telemetry unit. Cardiology consulted for evaluation of chest pain. Liver ultrasound obtained shows CBD up to 8 mm and is more prominent when compared to previous study in 2008. Serial troponin levels remain normal. APRIL 02, 2017: Mr. Keating is awake, alert, and calm this morning. Reports he is having no chest pain, dyspnea, or epigastric discomfort this morning. LFTs have trended down with AST 203, ALT 330. Total bilirubin down to 1.3. Electrolytes and renal function stable. Atrial fibrillation per phototypesetting equipment monitor with some transient periods of sinus rhythm. No ectopy or dysrhythmia. Echocardiogram with normal LV systolic function, EF 65%, 2+ aortic stenosis, mild TR. Current Medications Aspirin () 325 mg PO DAILY [facility] Last Admin: 04/01/17 09:10 Dose: 325 mg Carvedilol (Coreg) 3.125 mg PO BID [facility] Last Admin: 04/01/17 22:53 Dose: 3.125 mg Dextrose/Water (D50) 25 gm IV PRN PRN PRN Reason: Hypoglycemia with IV access Enoxaparin Sodium (Lovenox) 40 mg SUBCUT Q24H [facility] Last Admin: 04/01/17 22:53 Dose: 40 mg Furosemide (Lasix Inj) 20 mg IV BID DIURETIC [facility] Last Admin: 04/01/17 16:07 Dose: 20 mg Glucagon () 1 mg IM PRN PRN PRN Reason: Hypoglycemia w/o IV access Insulin Human Lispro (Humalog) 0 unit SUBCUT ACHS [facility] PRN Reason: Protocol Last Admin: 04/01/17 21:07 Dose: Not Given Nitroglycerin (Nitro Bid Oint) 0.5 inch TOP Q6HR [facility] Last Admin: 04/02/17 08:08 Dose: Not Given Ondansetron HCl (Zofran Inj) 4 mg IV Q4H PRN PRN Reason: Nausea/Vomiting Last Admin: 03/31/17 23:25 Dose: 4 mg Promethazine HCl (Phenergan Inj) 25 mg IM Q6H PRN PRN Reason: Nausea/Vomiting Last Admin: 04/01/17 00:43 Dose: 25 mg Exam (Progress Note) - Constitutional Vitals: Period Temp Pulse Resp BP Sys/Abraham Pulse Ox Last 24 Hr 96.7 F-97.2 F 78-97 16-20 123-147/77-108 95-97 Exam: General: Present: No Apparent Distress, Other (Elderly, frail) HEENT: Present: Normocephaly, Mucus Membranes Moist. Absent: Pallor Neck: Present: Supple Neck, Midline Trachea, No JVD/HJR, No Bruit Cardiac: Present: Irregularly Regular, Systolic Murmur. Absent: Tachycardia, Bradycardia Lungs: Present: Clear Ascult./Percussion, No Wheeze, Rales, Rhonchi. Absent: Oxygen Neuro: Present: Grossly Intact. Absent: Numbness, Tingling, Weakness, Resting Tremor, Essential Tremor Abdomen: Present: Soft, Active Bowel Sounds Skin: Absent: Rash, Suspicious Lesions, Bruising Musculoskeletal: Present: No Fluid Collection Extremities: Present: No Clubbing, No Cyanosis, No Edema, Edema (1+ pretibial), Capillary Refill (Normal), Other (brawny, discolored skin BLE's from meier areas and distal) Result/EKG - Labs CBC & BMP: 04/02/17 04:33 04/02/17 04:33 Lab Results: I have reviewed the past 24 hour labs Labs: Laboratory Results - last 24 hr 04/01/17 04/01/17 04/01/17 08:01 08:01 08:01 WBC RBC Hgb Hct MCV MCH MCHC RDW Plt Count MPV Neut % (Auto) Lymph % (Auto) [place] % (Auto) Eos % (Auto) Baso % (Auto) Neut # (Auto) Lymph # (Auto) [place] # (Auto) Eos # (Auto) Baso # (Auto) Immature Gran % Nucleated RBC % Immature Gran # Nucleated RBCs # INR 2.0 PT Patient/Control Mix 21.8 Circ Anticoag PTT Sodium 140 Potassium 4.2 Chloride 103 Carbon Dioxide 31 Anion Gap 10.2 BUN 25 H Creatinine 1.70 H GFR Calculation 45 BUN/Creatinine Ratio 14.00 Glucose 87 POC Glucose Hemoglobin A1c Calculated Osmolality 281.4 Calcium 8.6 Iron TIBC % Saturation Ferritin Total Bilirubin 2.00 H Direct Bilirubin AST 615 H ALT 540 H Alkaline Phosphatase 172 H Ammonia Total Protein 7.6 Albumin 3.7 Globulin 3.9 H Albumin/Globulin Ratio 0.9 L Free T4 TSH 3rd Generation Cortisol 8am Sample 10.9 Hepatitis A IgM Ab Hep Bs Antigen Hep B Core IgM Ab Hepatitis C Antibody 04/01/17 04/01/17 04/01/17 08:01 13:00 13:01 WBC RBC Hgb Hct MCV MCH MCHC RDW Plt Count MPV Neut % (Auto) Lymph % (Auto) [place] % (Auto) Eos % (Auto) Baso % (Auto) Neut # (Auto) Lymph # (Auto) [place] # (Auto) Eos # (Auto) Baso # (Auto) Immature Gran % Nucleated RBC % Immature Gran # Nucleated RBCs # INR PT Patient/Control Mix Circ Anticoag PTT Sodium Potassium Chloride Carbon Dioxide Anion Gap BUN Creatinine GFR Calculation BUN/Creatinine Ratio Glucose POC Glucose Hemoglobin A1c Calculated Osmolality Calcium Iron 131 TIBC 293 % Saturation 44.7 Ferritin 308.3 Total Bilirubin Direct Bilirubin AST ALT Alkaline Phosphatase Ammonia 20 Total Protein Albumin Globulin Albumin/Globulin Ratio Free T4 TSH 3rd Generation Cortisol 8am Sample Hepatitis A IgM Ab Negative Hep Bs Antigen Negative Hep B Core IgM Ab Negative Hepatitis C Antibody Negative 04/01/17 04/01/17 04/01/17 13:01 13:01 13:03 WBC RBC Hgb Hct MCV MCH MCHC RDW Plt Count MPV Neut % (Auto) Lymph % (Auto) [place] % (Auto) Eos % (Auto) Baso % (Auto) Neut # (Auto) Lymph # (Auto) [place] # (Auto) Eos # (Auto) Baso # (Auto) Immature Gran % Nucleated RBC % Immature Gran # Nucleated RBCs # INR 2.0 PT Patient/Control Mix 22.4 Circ Anticoag PTT 38.6 Sodium Potassium Chloride Carbon Dioxide Anion Gap BUN Creatinine GFR Calculation BUN/Creatinine Ratio Glucose POC Glucose Hemoglobin A1c Calculated Osmolality Calcium Iron TIBC % Saturation Ferritin Total Bilirubin Direct Bilirubin 0.50 H AST ALT Alkaline Phosphatase Ammonia Total Protein Albumin Globulin Albumin/Globulin Ratio Free T4 0.72 L TSH 3rd Generation 1.320 Cortisol 8am Sample Hepatitis A IgM Ab Hep Bs Antigen Hep B Core IgM Ab Hepatitis C Antibody 0704/01/17 04/01/17 13:05 16:16 20:54 WBC RBC Hgb Hct MCV MCH MCHC RDW Plt Count MPV Neut % (Auto) Lymph % (Auto) [place] % (Auto) Eos % (Auto) Baso % (Auto) Neut # (Auto) Lymph # (Auto) [place] # (Auto) Eos # (Auto) Baso # (Auto) Immature Gran % Nucleated RBC % Immature Gran # Nucleated RBCs # INR PT Patient/Control Mix Circ Anticoag PTT Sodium Potassium Chloride Carbon Dioxide Anion Gap BUN Creatinine GFR Calculation BUN/Creatinine Ratio Glucose POC Glucose 115 H 98 Hemoglobin A1c 5.7 Calculated Osmolality Calcium Iron TIBC % Saturation Ferritin Total Bilirubin Direct Bilirubin AST ALT Alkaline Phosphatase Ammonia Total Protein Albumin Globulin Albumin/Globulin Ratio Free T4 TSH 3rd Generation Cortisol 8am Sample Hepatitis A IgM Ab Hep Bs Antigen Hep B Core IgM Ab Hepatitis C Antibody 04/02/17 04/02/17 04/02/17 04:33 04:33 07:28 WBC 7.7 RBC 4.70 Hgb 14.4 Hct 41.6 L MCV 88.5 MCH 31 MCHC 34.6 RDW 14.3 Plt Count 176 MPV 11.9 Neut % (Auto) 53.2 Lymph % (Auto) 31.1 [place] % (Auto) 11.9 Eos % (Auto) 2.5 Baso % (Auto) 0.8 Neut # (Auto) 4.1 Lymph # (Auto) 2.4 [place] # (Auto) 0.9 H Eos # (Auto) 0.2 Baso # (Auto) 0.1 Immature Gran % 0.5 Nucleated RBC % 0.0 Immature Gran # 0.04 Nucleated RBCs # 0.00 INR PT Patient/Control Mix Circ Anticoag PTT Sodium 140 Potassium 4.2 Chloride 103 Carbon Dioxide 30 Anion Gap 11.2 BUN 27 H Creatinine 1.70 H GFR Calculation 45 BUN/Creatinine Ratio 15.00 Glucose 79 POC Glucose 82 Hemoglobin A1c Calculated Osmolality 282.4 Calcium 8.8 Iron TIBC % Saturation Ferritin Total Bilirubin 1.30 H Direct Bilirubin AST 203 H ALT 330 H Alkaline Phosphatase 142 H Ammonia Total Protein 6.9 Albumin 3.4 Globulin 3.5 Albumin/Globulin Ratio 0.9 L Free T4 TSH 3rd Generation Cortisol 8am Sample Hepatitis A IgM Ab Hep Bs Antigen Hep B Core IgM Ab Hepatitis C Antibody - EKG EKG results: interpreted by me, no acute changes I, Sebastian Skaggs MD, personally performed the services described in this documentation, ascribed by Angella Gastelum RN in my presence, and it is both accurate and complete .
--- NOTE | 2017-04-02 16:27 | Hospitalist Progress Note ---
Assessment and Plan (1) Increase in transaminases Status: Acute Assessment and plan: Elevated liver enzymes improving, most likely was a stone that is now resolved. Current Visit: Yes (2) CHF (congestive heart failure) Status: Acute Assessment and plan: bnp only 173, Lasix p.o., aortic stenosis and tricuspid regurg do not want to dehydrate him. Current Visit: Yes (3) Diabetes Status: Chronic Assessment and plan: hemoglobin A1c 5.7 no evidence of diabetes. Current Visit: Yes (4) Hypertension Status: Chronic Assessment and plan: Continue Coreg 3.125 mg po bid Current Visit: Yes (5) Hypothyroidism Status: Chronic Assessment and plan: T4 0.72, continue [place] Thyroid Current Visit: Yes (6) Chest pain Status: Acute Assessment and plan: serial troponins, reviewed, Dr Skaggs feels this is noncardiac. Current Visit: Yes (7) Chronic atrial fibrillation Status: Chronic Assessment and plan: rate controlled without medications Current Visit: Yes (8) Dementia Status: Acute Assessment and plan: needs aricept at night, hold off starting any new meds due to liver dysfunction Current Visit: Yes Hospitalist: Subjective Interval history: Hemochromatosis unlikely due to ferritin and percentage saturation. Liver enzymes are improving. Family would like patient to go to skilled nursing for rehab. Exam - Constitutional Vitals: Period Temp Pulse Resp BP Sys/Abraham Pulse Ox Last 24 Hr 96.2 F-97.0 F 76-97 16-20 123-143/77-108 96-98 Exam: Heart Rate-[iRR] Lungs-[CTAB] GI-[+bs soft, NT] Ext-[1+ edema] Neuro [Motor 5/5], [alert and oriented times 1] psych [agitated mood and affect] General [no acute distress] Skin dark bronze Results - Labs CBC & BMP: 04/02/17 04:33 04/02/17 04:33 Lab Results: I have reviewed the past 24 hour labs - Diagnostic Findings Procedure: Ultrasound: report reviewed by me (Ultrasound shows an EF of 65%, 3+ left atrial enlargement, 2+ aortic stenosis, 2+ tricuspid regurg with a PIP of 37)
[2017-04-03 05:05] LABS: Basophils # 0.1 10*3/uL (0.0-0.2); Basophils % 0.7 % (0.0-0.8); Eosinophils # 0.2 10*3/uL (0.0-0.87); Eosinophils % 2.2 % (0.00-10.9); Hematocrit 42.4 VOL% (42.0-52.0); Hemoglobin 14.3 GM/DL (14.0-18.0); Immature Granulocytes % 0.2 %; Immature Granulocytes Absolute 0.02 #; Lymphocytes % 34.9 % (21.2-54.2); Mean Corpuscular HGB Conc 33.7 GM/DL (32-36); Mean Corpuscular Hemoglobin 30 PG (27-34); Mean Corpuscular Volume 89.3 FL (87-102); Mean Platelet Volume 11.5 FL (9.6-12.0); Monocytes # 1.1 10*3/uL (0.11-0.8); Monocytes % 13.4 % (1.7-12.7); Neutrophils # 4.1 10*3/uL (1.4-7.4); Neutrophils % 48.6 % (38.7-73.9); Platelet Count 171 T/CUMM (130-400); Red Blood Count 4.75 MC/CUMM (3.8-5.5); Red Cell Distribution Width 14.2 % (9.3-17.3); White Blood Count 8.5 T/CUMM (4-12)
[2017-04-03 05:38] LABS: Albumin 3.4 G/DL (3.4-5.0); Bilirubin,Total 1.3 MG/DL (0.2-1.0); Calcium 8.5 MG/DL (8.5-10.1); Osmolality,Calculated 285.4 MOS/KG (273-304); Potassium 4.1 MMOL/L (3.5-5.1); Total Protein 6.8 G/DL (6.4-8.3)
[2017-04-03] MEDS: IPRATROPIUM 500 MCG/2.5 ML NEB RESP TX SCH ×4 (07:11→18:59)
[2017-04-03] MEDS: FINASTERIDE 5 MG TABLET PO SCH (08:37)
[2017-04-03] MEDS: DILTIAZEM CD 180 MG CAPSULE PO SCH (08:37)
[2017-04-03] MEDS: ATENOLOL 25 MG TABLET PO SCH (08:38)
[2017-04-03] MEDS: ASPIRIN EC 325 MG TABLET PO SCH (08:38)
[2017-04-03] MEDS: SERTRALINE 50 MG TABLET PO SCH (08:38)
[2017-04-03] MEDS: TAMSULOSIN 0.4 MG CAPSULE PO SCH (08:38)
[2017-04-03] MEDS: PANTOPRAZOLE 40 MG TABLET PO SCH (08:38)
[2017-04-03] MEDS: INSULIN LISPRO 100 UNIT/ML SUBCUT SCH (08:39)
[2017-04-03] MEDS: NITROGLYCERIN 2% OINT 1 INCH/GM PACK TOP SCH ×4 (08:39→17:19)
[2017-04-03] MEDS: THYROID 60 MG TABLET PO SCH (08:44)
[2017-04-03] MEDS ORDERED: FUROSEMIDE 20 MG TABLET PO SCH (09:00)
[2017-04-03] MEDS ORDERED: LIDOCAINE 2%/EPI 20 ML VIAL ONE (10:33)
[2017-04-03] MEDS ORDERED: SODIUM BICARBONATE 50 MEQ/50 ML SYRINGE IV ONE ×2 (10:33→16:24)
[2017-04-03] MEDS ORDERED: COCAINE SUBSTITUTE 30 ML BOTTLE TOP ONE ×2 (10:33→16:23)
--- NOTE | 2017-04-03 10:37 | CT Report ---
CT brain Indication: Head injury after fall Comparison: None available Technique: Axial CT imaging of the brain is performed without contrast with 3 mm increments. Findings: No evidence of hemorrhage, mass mass effect midline shift or acute infarct seen. There is severe diffuse cerebral atrophy. There are areas of decreased density seen within the white matter likely related to chronic microvascular disease. Otherwise the brain parenchyma attenuation and differentiation appears within normal limits. The ventricles and cisterns are appropriate in caliber. Laceration scalp injury seen over the left frontal bone. No other cranial or skull base abnormality is identified. Impression: Scalp injury. No other evidence of acute process demonstrated. This CT exam was performed using one or more the following dose reduction techniques: Automated exposure control, adjustment of the MA and/or KV according to patient size, or use of iterative reconstruction technique. PROCEDURE INTERPRETED AT [facility] DEPARTMENT OF RADIOLOGY Final Report Signed by: Dr. Maulik Stringer
[2017-04-03] MEDS ORDERED: LIDOCAINE 100 MG/5 ML SYRINGE ONE (10:49)
[2017-04-03] MEDS ORDERED: SODIUM CHLORIDE 0.9% 500 ML IV ONE (11:06)
--- NOTE | 2017-04-03 11:12 | Hospitalist Progress Note ---
Assessment and Plan (1) Increase in transaminases Status: Acute Assessment and plan: Elevated liver enzymes improving without intervention Current Visit: Yes (2) Hypothyroidism Status: Chronic Assessment and plan: continue [place] Thyroid Current Visit: Yes (3) Chest pain Status: Acute Assessment and plan: serial troponins, reviewed, Dr Skaggs feels this is noncardiac. Current Visit: Yes (4) Chronic atrial fibrillation Status: Chronic Assessment and plan: cont dilt and atenolol, restarted coumadin 7.5 mg po every night Current Visit: Yes (5) Dementia Status: Acute Assessment and plan: needs aricept at night, hold off starting any new meds due to liver dysfunction Current Visit: Yes (6) Syncope and collapse Status: Acute Assessment and plan: due to orthostatic hypotension NS 500 ml. recheck orthostatics daily, stop lasix Current Visit: Yes (7) Laceration of head Status: Acute Assessment and plan: Dr. Livingston will sew him up. Current Visit: Yes Hospitalist: Subjective Interval history: Dr. Skaggs told patient that he could go home yesterday. We are waiting for PT evaluation but have not received it yet. I asked nursing to go and walk patient and he did good walk down the raya walked back to the room and then sat down in the chair and apparently passed out fell on the floor and split his head open. I examined him immediately and ordered a stat head CT as patient is on Coumadin. Head CT shows no acute hemorrhage. Family was in the room. I called Dr. Livingston from ENT and he is going to come in and stitch him up. We have placed a pressure bandage around his head to stop the bleeding. Spoke with his daughter today about CODE STATUS. She had indicated that his wishes are to be a DNR and we will change his CODE STATUS. Exam - Constitutional Vitals: Period Temp Pulse Resp BP Sys/Abraham Pulse Ox Last 24 Hr 96.0 F-97.2 F 71-81 16-20 101-157/57-97 92-98 Exam: Heart Rate-[IRR] Lungs-[CTAB] GI-[+bs soft, NT] Ext-[1+ edema] Neuro [Motor 5/5], [alert and oriented times 2] psych [pleasant mood and affect] General [no acute distress despite fall] Skin large 8 cm laceration from fall Results - Labs CBC & BMP: 04/03/17 04:29 04/03/17 04:29 Lab Results: I have reviewed the past 24 hour labs
--- NOTE | 2017-04-03 12:38 | Cardiology Progress Note ---
Assessment and Plan (1) Syncope and collapse Status: Acute Assessment and plan: The patient had a syncopal spell and hit his head after getting up walking. This appeared to be vasovagal. He did not have any cardiac symptoms such as chest pain, palpitation, or other symptoms. Medications have been adjusted to prevent orthostatic hypotension. He has a scalp laceration that is getting sutured. Current Visit: Yes (2) Abdominal pain Status: Acute Assessment and plan: No further abdominal pain today. Current Visit: Yes (3) Increase in transaminases Status: Acute Assessment and plan: LFTs are trending down today. Current Visit: Yes (4) Chronic atrial fibrillation Status: Chronic Assessment and plan: Ventricular response has been well controlled with regimen of digoxin 125 mcg by mouth daily and diltiazem ER 180 mg by mouth daily. He is chronically anticoagulated with Coumadin 5 mg by mouth daily. Current Visit: Yes (5) Hypertension Status: Chronic Current Visit: Yes (6) Diabetes Status: Chronic Assessment and plan: Well controlled at this time. Continue current plan of care. Current Visit: Yes (7) Hypothyroidism Status: Chronic Assessment and plan: Will need Bronson continued when reconciled in home medication list. Normal TSH on blood work in January. Current Visit: Yes (8) Hyperlipidemia Status: Chronic Assessment and plan: Continue current plan of care. FLP this admission unremarkable. Current Visit: Yes Cardiology - PN: Subj Interval history: The patient was getting stitches in his head at the time that I saw him. Apparently he did well overnight. He did not have any new cardiac issues. His liver function tests were improving and his abdominal pain had resolved. He got up and did a little walking prior to discharge. After his walk when he sat back down he apparently had a syncopal episode, which appeared to be secondary to orthostatic hypotension, fell and hit his forehead. There is a large laceration there that is currently being stitched up. CT of the head did not show any acute bleed/abnormality. He denies any cardiac symptoms today. I discussed his case today with Dr. Davies. Current Medications Aspirin () 81 mg PO DAILY MARC Atenolol (Tenormin) 25 mg PO DAILY MARC Last Admin: 04/03/17 08:38 Dose: 25 mg Carboxymethylcellulose Sodium (Refresh Celluvisc) 1 drop BOTH EYES DAILY PRN PRN Reason: Dry Eyes Digoxin (Lanoxin Tab) 0.125 mg PO QOTHER DAY [facility] Last Admin: 04/02/17 10:24 Dose: 0.125 mg Diltiazem HCl (Cardizem Cd) 120 mg PO BID [facility] Fluticasone Propionate (Flonase) 1 spray BOTH NARES DAILY PRN PRN Reason: Nasal Congestion Ipratropium [place] (Atrovent Neb) 500 mcg RESP TX RT QID [facility] Last Admin: 04/03/17 10:59 Dose: Not Given Nitroglycerin (Nitro Bid Oint) 0.5 inch TOP Q6HR [facility] Last Admin: 04/03/17 08:39 Dose: Not Given Ondansetron HCl (Zofran Inj) 4 mg IV Q4H PRN PRN Reason: Nausea/Vomiting Last Admin: 03/31/17 23:25 Dose: 4 mg Pantoprazole Sodium (Protonix Tab) 40 mg PO DAILY [facility] Last Admin: 04/03/17 08:38 Dose: 40 mg Promethazine HCl (Phenergan Inj) 25 mg IM Q6H PRN PRN Reason: Nausea/Vomiting Last Admin: 04/01/17 00:43 Dose: 25 mg Sertraline HCl (Zoloft) 50 mg PO DAILY [facility] Last Admin: 04/03/17 08:38 Dose: 50 mg Tamsulosin HCl (Flomax) 0.4 mg PO DAILY [facility] Last Admin: 04/03/17 08:38 Dose: 0.4 mg Thyroid ([place] Thyroid) 120 mg PO DAILY@0700 [facility] Last Admin: 04/03/17 08:44 Dose: 120 mg Warfarin Sodium (Coumadin) 7.5 mg PO DAILY@1800 [facility] Exam (Progress Note) - Constitutional Vitals: Period Temp Pulse Resp BP Sys/Abraham Pulse Ox Last 24 Hr 96.0 F-97.2 F 71-80 16-20 101-157/57-91 92-98 Exam: General: Frail, elderly, in no acute distress HEENT: Normocephalic, large traumatic laceration left upper forehead Psychiatric: The patient is alert and oriented. The patient has a flat affect but does not appear to be anxious or depressed. Result/EKG - Labs CBC & BMP: 04/03/17 04:29 04/03/17 04:29 Labs: Laboratory Results - last 24 hr 07/04/02/17 04/03/17 16:37 20:35 04:29 WBC 8.5 RBC 4.75 Hgb 14.3 Hct 42.4 MCV 89.3 MCH 30 MCHC 33.7 RDW 14.2 Plt Count 171 MPV 11.5 Neut % (Auto) 48.6 Lymph % (Auto) 34.9 [place] % (Auto) 13.4 H Eos % (Auto) 2.2 Baso % (Auto) 0.7 Neut # (Auto) 4.1 Lymph # (Auto) 3.0 [place] # (Auto) 1.1 H Eos # (Auto) 0.2 Baso # (Auto) 0.1 Immature Gran % 0.2 Nucleated RBC % 0.0 Immature Gran # 0.02 Nucleated RBCs # 0.00 Sodium Potassium Chloride Carbon Dioxide Anion Gap BUN Creatinine GFR Calculation BUN/Creatinine Ratio Glucose POC Glucose 118 H 139 H Calculated Osmolality Calcium Total Bilirubin AST ALT Alkaline Phosphatase Total Protein Albumin Globulin Albumin/Globulin Ratio 04/03/17 04/03/17 04:29 07:38 WBC RBC Hgb Hct MCV MCH MCHC RDW Plt Count MPV Neut % (Auto) Lymph % (Auto) [place] % (Auto) Eos % (Auto) Baso % (Auto) Neut # (Auto) Lymph # (Auto) [place] # (Auto) Eos # (Auto) Baso # (Auto) Immature Gran % Nucleated RBC % Immature Gran # Nucleated RBCs # Sodium 140 Potassium 4.1 Chloride 103 Carbon Dioxide 29 Anion Gap 12.1 BUN 33 H Creatinine 1.60 H GFR Calculation 49 BUN/Creatinine Ratio 20.00 Glucose 95 POC Glucose 149 H Calculated Osmolality 285.4 Calcium 8.5 Total Bilirubin 1.30 H AST 84 H ALT 215 H Alkaline Phosphatase 128 H Total Protein 6.8 Albumin 3.4 Globulin 3.4 Albumin/Globulin Ratio 1.0 L
--- NOTE | 2017-04-03 12:46 | Consultation ---
Assessment and Plan - Time spent with patient Time spent with patient: Greater than 30 minutes History of Present Illness - Data of Consult Consult date: 04/03/17 Requesting Physician: Leslie Davies Primary care physician: Uzair Ferro - Consult Narrative Reason for consult: forehead/scalp laceration History of present illness: Mr. Keating is a 86 year old male who fell and struck his forehead/scalp, sustained 10 cm laceration with bleeding. Apparent syncopal episode. No history of local anesthetic reaction. CC: Leslie Davies MD - Home Medications and Allergies Home Medications: Home Medications Medication Instructions Recorded Confirmed Type Aspirin Tab 325 mg PO DAILY 04/01/17 04/01/17 History Atenolol 25 mg PO DAILY 04/01/17 04/01/17 History Carboxymethylcellulose Sodium 1 drop BOTH EYES DAILY PRN 04/01/17 04/01/17 History [Refresh Tears] Digoxin 125 mcg PO QOTHER DAY 04/01/17 04/01/17 History Diltiazem HCl [Cardizem LA] 180 mg PO BID 04/01/17 04/01/17 History Dutasteride/Tamsulosin HCl [[place]] 1 capsule PO DAILY 04/01/17 04/01/17 History Esomeprazole Magnesium [Nexium] 40 mg PO DAILY 04/01/17 04/01/17 History Fluticasone 50 Mcg Nasal [place] 1 spray BOTH NARES DAILY PRN 04/01/17 04/01/17 History [Flonase Nasal [place]] Losartan Potassium [Cozaar] 100 mg PO DAILY 04/01/17 04/01/17 History Potassium Chloride [Klor-Con M20] 1 tablet PO DAILY 04/01/17 04/01/17 History Quetiapine Fumarate [Quetiapine 50 mg PO BEDTIME 04/01/17 04/01/17 History Fumarate] Sertraline HCl 50 mg PO DAILY 04/01/17 04/01/17 History Temazepam [Restoril] 15 mg PO BEDTIME 04/01/17 04/01/17 History Thyroid [[place] Thyroid] 120 mg PO DAILY@0700 04/01/17 04/01/17 History Tiotropium Inhalation [Spiriva 18 mcg INH DAILY 04/01/17 04/01/17 History Handihaler] Warfarin Sodium 7.5 mg PO MOFR 04/01/17 04/01/17 History Warfarin [Coumadin] 5 mg PO DAILY@1800 04/01/17 04/01/17 History dimenhyDRINATE [Dimenhydrinate] 50 mg PO DAILY PRN 04/01/17 04/01/17 History Allergies/Adverse Reactions: Allergies Allergy/AdvReac Type Severity Reaction Status Date / Time No Known Allergies Allergy Unverified 03/31/17 16:43 - Constitutional Constitutional: Present: as per HPI - EENT Eyes: Present: as per HPI Nose, mouth and throat: Present: as per HPI Medical,Surgical,& Family Hx - Medical History Cardio: History of: Cardiac Dysrhythmia, Hypertension, IA (IA?) Neurology: History of: Cerebrovascular Accident, Dementia Endocrine: History of: Dyslipidemia, Thyroid Disorder Respiratory: History of: COPD Renal: History of: Renal Problems Gastrointestinal: History of: GERD, GI Problems (had feeding tube at one time) Musculoskeletal: History of: Musculoskeletal Problems (arthritis) Hematology: No history of: Bleeding Problems Other: History of: Miscellaneous Medical Problems (Arthritis, "heart problems") No history of: Cancer, HIV - Surgical History Cardiac Surgeries: Sugical HX of: Cardiac Catheterization Abdominal Surgeries: Surgical HX of: Appendectomy, Cholecystectomy - Family History Family History: Reports;: Family Cancer (mother "female cancer"), Family Stroke (mother,father) - Social History Smoking Status: Never smoker Frequency of Alcohol Use: None Type of Drug Use: None Exam - Constitutional Vitals: Period Temp Pulse Resp BP Sys/Abraham Pulse Ox Last 24 Hr 96.0 F-97.2 F 71-80 16-20 101-157/57-91 92-98 - Head Head exam: Present: hematoma, laceration (roughly vertical, to left of midline, 10 cm length) Results - Labs CBC & BMP: 04/03/17 04:29 04/03/17 04:29 - Impressions fall with facial laceration. Date of procedure: 04/03/17 Pre-op diagnosis: forehead laceration, 10 cm Post-op diagnosis: same Procedure: applied topical anesthesia, then infiltrated 20 mL of 50:50 mixture of 2% lidocaine with epinephrine along wound margins and bed. Cleaned wound with betadine on sponges. Closed with inverted interrupted 4-0 Monocryl in the dermis with running locking 4-0 Chromic in the epidermis. Blood loss of 100 ml prior to and during procedure. Anesthesia: local Surgeon: Amando Livingston Estimated blood loss: 100 Pathology: none sent Condition: stable Disposition: no change
[2017-04-03 14:06] LABS: Hematocrit 39.7 VOL% (42.0-52.0); Hemoglobin 13.7 GM/DL (14.0-18.0)
[2017-04-03] MEDS ORDERED: LIDOCAINE 2%/EPI 1:100,000 DENTAL 1.7 ML CARTRIDGE DENTAL ONE (16:17)
[2017-04-03] MEDS ORDERED: WARFARIN 7.5 MG TABLET PO SCH (18:00)
[2017-04-03] MEDS: DILTIAZEM CD 120 MG CAPSULE PO SCH (20:42)
[2017-04-04] MEDS: NITROGLYCERIN 2% OINT 1 INCH/GM PACK TOP SCH ×3 (00:31→12:34)
[2017-04-04 05:25] LABS: INR 1.4; PT Patient Result 15.1 SECS
[2017-04-04 05:44] LABS: Albumin 3.2 G/DL (3.4-5.0); Bilirubin,Total 1.6 MG/DL (0.2-1.0); Calcium 8.7 MG/DL (8.5-10.1); Osmolality,Calculated 286.5 MOS/KG (273-304); Total Protein 6.6 G/DL (6.4-8.3)
[2017-04-04] MEDS: THYROID 60 MG TABLET PO SCH (06:25)
[2017-04-04] MEDS: IPRATROPIUM 500 MCG/2.5 ML NEB RESP TX SCH ×3 (07:48→10:21)
[2017-04-04] MEDS: DIGOXIN 0.125 MG TABLET PO SCH (08:39)
[2017-04-04] MEDS: PANTOPRAZOLE 40 MG TABLET PO SCH (08:39)
[2017-04-04] MEDS: ATENOLOL 25 MG TABLET PO SCH (08:39)
[2017-04-04] MEDS: SERTRALINE 50 MG TABLET PO SCH (08:39)
[2017-04-04] MEDS: DILTIAZEM CD 120 MG CAPSULE PO SCH (08:39)
[2017-04-04] MEDS: TAMSULOSIN 0.4 MG CAPSULE PO SCH (08:40)
[2017-04-04] MEDS ORDERED: ASPIRIN EC 81 MG TABLET PO SCH (09:00)
[2017-04-04] MEDS ORDERED: SODIUM CHLORIDE 0.9% 250 ML IV ONE (10:01)
[2017-04-04] MEDS ORDERED: ALBUTEROL/IPRATROPIUM 3 ML NEB RESP TX ONE (10:06)
--- NOTE | 2017-04-04 10:23 | Discharge Summary ---
Diagnosis - Discharge Diagnosis (1) Increase in transaminases Status: Acute (2) Hypothyroidism Status: Chronic (3) Chest pain Status: Acute (4) Chronic atrial fibrillation Status: Chronic (5) Dementia Status: Acute (6) Syncope and collapse Status: Acute (7) Laceration of head Status: Acute Discharge Plan - Discharge Data Disposition: Home Health Service Condition at Discharge: Stable Discharge Diet: diabetic diet Activity: resume usual activities as tolerated, wear oxygen at all times Hygiene: no restrictions Weight Bearing at Discharge: full weight bearing, other (fall precautions ) - Discharge Medications New Aspirin EC Tab 81 mg PO DAILY tablet Diltiazem Cd Cap [Cardizem CD] 120 mg PO BID #60 capsule Continue Digoxin 125 mcg PO QOTHER DAY Sertraline HCl 50 mg PO DAILY Tiotropium Inhalation [Spiriva Handihaler] 18 mcg INH DAILY Thyroid [[place] Thyroid] 120 mg PO DAILY@0700 Warfarin [Coumadin] 5 mg PO DAILY@1800 Atenolol 25 mg PO DAILY Fluticasone 50 Mcg Nasal [place] [Flonase Nasal [place]] 1 spray BOTH NARES DAILY PRN PRN Reason: Nasal Congestion Carboxymethylcellulose Sodium [Refresh Tears] 1 drop BOTH EYES DAILY PRN PRN Reason: Dry Eyes Temazepam [Restoril] 15 mg PO BEDTIME Esomeprazole Magnesium [Nexium] 40 mg PO DAILY Changed Warfarin Sodium 7.5 mg PO SUMOFR #0 Discontinued Aspirin Tab 325 mg PO DAILY dimenhyDRINATE [Dimenhydrinate] 50 mg PO DAILY PRN PRN Reason: Antiemetic Losartan Potassium [Cozaar] 100 mg PO DAILY Quetiapine Fumarate [Quetiapine Fumarate] 50 mg PO BEDTIME Dutasteride/Tamsulosin HCl [[place]] 1 capsule PO DAILY Potassium Chloride [Klor-Con M20] 1 tablet PO DAILY Diltiazem HCl [Cardizem LA] 180 mg PO BID - Follow Up or Referral Follow Up: Dr alvarez [Other] - 1 Week - Forms/Instructions Additional Discharge Instructions: remove stitches from head in 7 days. INR daily beginning on wednesday, call results to Dr. Ferro. home pt for balance. Exam - Constitutional Vitals: Period Temp Pulse Resp BP Sys/Abraham Pulse Ox Last 24 Hr 96.8 F-972 F 56-106 14-20 110-138/55-79 92-99 Discharge Results Procedures and tests throughout hospitalization: Pending Orders 04/01/17 13:02 Hemochromatosis HFE Gene Elida Stat 04/04/17 10:03 XR chest 1V portable Stat 04/05/17 04:00 Prothrombin Time INR IN AM Labs on day of discharge: Labs from last 24 hours 04/04/17 04/04/17 04/04/17 07:06 04:36 04:36 Hgb Hct INR 1.4 PT Patient/Control Mix 15.1 D Sodium 139 Potassium 4.0 Chloride 102 Carbon Dioxide 27 Anion Gap 14.0 BUN 37 H Creatinine 1.60 H GFR Calculation 48 BUN/Creatinine Ratio 23.00 H Glucose 123 H POC Glucose 133 H Calculated Osmolality 286.5 Calcium 8.7 Transferrin Total Bilirubin 1.60 H AST 52 H ALT 143 H Alkaline Phosphatase 114 Total Protein 6.6 Albumin 3.2 L Globulin 3.4 Albumin/Globulin Ratio 0.9 L 04/03/17 04/01/17 13:57 13:02 Hgb 13.7 L Hct 39.7 L INR PT Patient/Control Mix Sodium Potassium Chloride Carbon Dioxide Anion Gap BUN Creatinine GFR Calculation BUN/Creatinine Ratio Glucose POC Glucose Calculated Osmolality Calcium Transferrin 235 Total Bilirubin AST ALT Alkaline Phosphatase Total Protein Albumin Globulin Albumin/Globulin Ratio DS: Provider Date of admission: 04/01/17 12:51 Primary care physician: . No PCP Attending physician on admission: Joel Rdz MD Consults: 03/31/17 22:31 Consult to Physician [CONS] Routine Comment: jalyn patient Consulting Provider: Cardiology - [facility] Consult to Specialist Group: Cardiology When should Consulting Provider be notified: In am Person Notified: lois Date Notified: 04/01/17 Time Notified: 07:55 04/01/17 11:13 Consult to Physician [CONS] Routine Comment: elevated bilirubin, dilated cbd Consulting Provider: Chad Bauer Consult to Specialist Group: Gastroenterology Consult Notification Comment: left message at 1130 for gi consult 04/02/17 10:24 Consult to Occupational Therapy [CONS] Routine Reason for Occupational Therapy: Evaluate and Treat Consult to Physical Therapy [CONS] Routine Reason for Physical Therapy: Evaluate and Treat 04/03/17 16:15 Consult to Physician [CONS] Routine Comment: Consulting Provider: Amando Livingston Consulting Provider Notified: Yes 04/04/17 10:02 Consult to Case Mgmt/Social Srvs [CONS] Routine Reason for Case Mgmt/Social Srvs: Home Health Other Consult Comment: nurse, inr check, oxygen 1liters nc, portable,pt Discharging clinician: Leslie Davies MD
--- NOTE | 2017-04-04 10:30 | XRay Report ---
XR chest 1V portable Indication: Shortness of breath Comparison: 31 March 2017 Findings: The heart and mediastinum are normal in size and configuration. The pulmonary vascularity is normal in caliber. No lung infiltrates, effusions, pneumothorax or other abnormality is demonstrated. Impression: No acute cardiopulmonary disease. PROCEDURE INTERPRETED AT [facility] DEPARTMENT OF RADIOLOGY Final Report Signed by: Dr. Maulik Stringer
[2017-04-04 11:54] VITALS: BP 106/65
--- NOTE | 2017-04-06 09:35 | Physician Query Form ---
CLICK EDIT DOCUMENT TO SELECT QUERY ANSWER --> OK --> SIGN Kaylin Stuart RN, CCDS Certified Clinical Granulating Machine Operator W) [phone] (f) [phone] [email or web address] PROVIDERS: Make your selection(s) from the choices in EACH section by typing an "x" and enter comments in the comment section. Please use your independent medical judgment in providing your response. This request does not imply that any particular answer is desired or expected. CLINICAL INDICATORS: (Providers should not edit this section) The medical record indicates that the patient was admitted with chest pain, " BNP of only 173 but his chest x-ray was read as having pulmonary edema", "EF of 65%" and the patient was treated with Lasix. Please provide further specificity regarding CHF. ACUITY: ( ) Acute ( ) Chronic (x ) Acute on Chronic ( ) Clinicallly unable to determine TYPE: ( ) Systolic (HFrEF - heart failure with reduced systolic function/EF) ( x) Diastolic (HFpEF - heart failure with preserved systolic function/EF) ( ) Combined Systolic/Diastolic ( ) Other, please specify: ( ) Clinically unable to determine ( ) The patient does NOT have CHF COMMENTS: PLEASE ALSO DOCUMENT RESPONSE IN PROGRESS NOTES AND/OR DISCHARGE SUMMARY Use of terms such as suspected, likely, or probable (associated with a specific diagnosis that is being evaluated, monitored, or treated as if it exists) are acceptable and can be restated in the discharge summary if not ruled out. MTDD
== END 2017-04-04 13:40 | disposition home health service (06) | DRG 444 ==
LOC: N.EDINP 16:38 → N.ED 16:38 → SUATTDRO 23:24 → N.TELES 23:33
PROVIDERS: ADMIT Internal Medicine; ATTEND Internal Medicine

== ENCOUNTER 2017-04-28 13:18 | Inpatient (IN) ==
[2017-04-28] MEDS ORDERED: ALBUTEROL 2.5 MG/3 ML NEB RESP TX STA (13:39)
--- NOTE | 2017-04-28 13:50 | Emergency Department Note ---
Quintin Martin Brittany, am scribing for, and in the presence of, Edwin Caro MD 13: 41. Vania Martin James D, MD, personally performed the services described in this documentation, ascribed by Henna Ribeiro in my presence, and it is both accurate and complete . Arrival - Arrival Chief Complaint: Shortness of Breath ED Nursing Triage Note: TRANSFER FROM [facility] TO SOB AND DVT LEFT COMMON FEMORAL, CT NO EVIDENCE OF PE, PT HAS NO COMPLAINTS AT TIME OF TRIAGE Mode of Arrival: Stretcher Limitations: No Limitations Source: Patient, RN Notes Reviewed - History of Present Illness HPI Narrative: This is an 86 y/o male,who presents to the ED by EMS with c/o SOB which started earlier this morning. He was transported from [place]. His son reports the SOB has been for years but has progressively gotten worse. He reports with any kind of exertion pt becomes SOB. Pt denies a fever, chills or a cough.Pt has no other complaints/pain in the ED at this time. Pt has a PMHx of HTN, NH, CVA, dyslipidemia, thyroid disorder, dementia, COPD, GERD, renal failure, and arthritis. Pt has had a cardiac cath, appendectomy, and cholecystectomy. Pt has a family medical hx of cancer and stroke. Pt is a current some day smoker/light tobacco use. Onset (ago): minute(s) (Started earlier this morning.) Consistency: constant Severity: moderate Allergies/Adverse Reactions: Allergies Allergy/AdvReac Type Severity Reaction Status Date / Time No Known Allergies Allergy Verified 04/28/17 13:27 Home Medications: Home Medications Medication Instructions Recorded Confirmed Type Atenolol 25 mg PO DAILY 04/01/17 04/01/17 History Carboxymethylcellulose Sodium 1 drop BOTH EYES DAILY PRN 04/01/17 04/01/17 History [Refresh Tears] Digoxin 125 mcg PO QOTHER DAY 04/01/17 04/01/17 History Esomeprazole Magnesium [Nexium] 40 mg PO DAILY 04/01/17 04/01/17 History Fluticasone 50 Mcg Nasal [place] 1 spray BOTH NARES DAILY PRN 04/01/17 04/01/17 History [Flonase Nasal [place]] Sertraline HCl 50 mg PO DAILY 04/01/17 04/01/17 History Temazepam [Restoril] 15 mg PO BEDTIME 04/01/17 04/01/17 History Thyroid [[place] Thyroid] 120 mg PO DAILY@0700 04/01/17 04/01/17 History Tiotropium Inhalation [Spiriva 18 mcg INH DAILY 04/01/17 04/01/17 History Handihaler] Warfarin [Coumadin] 5 mg PO DAILY@1800 04/01/17 04/01/17 History Albuterol Sulfate [Albuterol Neb] 0.63 mg RESP TX TID #60 neb 04/04/17 Rx Aspirin EC Tab 81 mg PO DAILY tablet 04/04/17 Rx Diltiazem Cd Cap [Cardizem CD] 120 mg PO BID #60 capsule 04/04/17 Rx Warfarin Sodium 7.5 mg PO SUMOFR #0 04/04/17 04/01/17 Rx Review of System - Review of System 12 point system: reviewed and no additional remarkable complaints except as stated - Review of System Respiratory: Present: wheezing Cardiovascular: Present: dyspnea on exertion Medical,Surgical,& Family Hx - Medical History Cardio: History of: Cardiac Dysrhythmia, Hypertension, NH (NH?) Neurology: History of: Cerebrovascular Accident, Dementia Endocrine: History of: Dyslipidemia, Thyroid Disorder Respiratory: History of: COPD Renal: History of: Renal Problems Gastrointestinal: History of: GERD, GI Problems (had feeding tube at one time) Musculoskeletal: History of: Musculoskeletal Problems (arthritis) Hematology: No history of: Bleeding Problems Other: History of: Miscellaneous Medical Problems (Arthritis, "heart problems") No history of: Cancer, HIV - Surgical History Cardiac Surgeries: Sugical HX of: Cardiac Catheterization Abdominal Surgeries: Surgical HX of: Appendectomy, Cholecystectomy - Family History Family History: Reports;: Family Cancer (mother "female cancer"), Family Stroke (mother,father) - Social History Smoking Status: Never smoker Exam Vital Signs: Vital Signs Temperature 96.6 F L 04/28/17 13:20 Pulse Rate 98 H 04/28/17 13:20 Respiratory Rate 18 04/28/17 13:56 Blood Pressure 168/105 04/28/17 13:20 O2 Sat by Pulse Oximetry 94 L 04/28/17 13:20 GENERAL: This is a chronically ill-appearing white male in no apparent distress. VITAL SIGNS: Reviewed HEENT: Head is atraumatic and normocephalic. Pupils are equal round react to light. Extraocular movements are intact. Oropharynx is benign with moist mucous membranes. NECK: Neck is soft and supple without tenderness. There are no masses. There is no lymphadenopathy. LUNGS: Decreased breath sounds in the right lung base. Chest rises symmetrically. There is no chest wall tenderness. CV: Heart is regular rate and rhythm without murmurs rubs or gallops. ABDOMEN: Abdomen is soft, nontender to palpation. There are no abdominal abnormal masses palpated. There is no organomegaly. Bowel sounds are present and active. SKIN: Skin is warm and dry. No rash. EXTREMITIES: Patient has full range of motion without tenderness. There is 2+ pitting pedal edema. There is hyperpigmentation overlying the pretibial areas consistent with chronic venous stasis disease. NEUROLOGIC: Awake alert and oriented 4. Cranial nerves II through XII are grossly intact. Motor is 5 over 5 in all extremities bilaterally. Course - Consultations Consultation #1: Discussed with hospitalist. Patient will be admitted to their service. Time: 13:50 Results - Labs Lab Results: I have reviewed the patients labs Labs: Lab performed at [facility] and reviewed by me: Chemistry: Sodium 140, potassium 4.4, chloride 106, CO2 27, BUN 16, creatinine 1.3, calcium 8.9, glucose 101, ALT 27, AST 23, total bilirubin 0.7 CBC: WBC 6200, hemoglobin 11.6, hematocrit 36.2, platelet count 153,000 INR 2.1 ProBNP 2209 Troponin less than 0.03 Urinalysis specific gravity 1.020, pH 5.5, nitrite negative, ketones negative, leukocyte esterase negative - EKG EKG results: interpreted by ERMD - Impressions EKG: Atrial flutter with a rate of 102, variable AV block, low voltage QRS. Occasional PVCs. This EKG was performed at [facility]. - Diagnostic Findings Procedure: Chest x-ray: image reviewed by me (Chest x-ray performed at [facility]: Increased pulmonary markings bilaterally, right pleural effusion, cardiomegaly), CT - chest: image reviewed by me (Right pleural effusion on CT scan of the chest.) Disposition Clinical Impression: Recurrent right pleural effusion, Congestive heart failure, Atrial flutter, Chronic anticoagulation Case discussed with: patient Disposition: Still a Patient Condition: Stable Time of Disposition: 13:52
[2017-04-28] MEDS ORDERED: MAGNESIUM SULF RIDER 4 GM in PREMIX 1 EACH IV PRN (14:49)
[2017-04-28] MEDS ORDERED: ONDANSETRON 4 MG/2 ML VIAL IV PRN (14:49)
[2017-04-28] MEDS ORDERED: MAGNESIUM SULF RIDER 2 GM in PREMIX 1 EACH IV PRN (14:49)
[2017-04-28] MEDS ORDERED: ZALEPLON 5 MG CAPSULE PO PRN (14:49)
[2017-04-28] MEDS ORDERED: ACETAMINOPHEN 325 MG TABLET PO PRN (14:49)
[2017-04-28] MEDS ORDERED: ONDANSETRON 4 MG/2 ML VIAL ONE (14:52)
[2017-04-28] MEDS ORDERED: ONDANSETRON 4 MG/2 ML VIAL IV STA (14:52)
--- NOTE | 2017-04-28 15:00 | Hospitalist History & Physical ---
Assessment and Plan (1) COPD with exacerbation Status: Acute Assessment and plan: Duo nebs every 6 hours with IV steroids and IV antibiotics. Current Visit: Yes (2) DVT (deep venous thrombosis) Status: Acute Assessment and plan: Left lower extremity DVT despite therapeutic on his Coumadin is concerning may want to switch over to Eliquis to ensure adequate anticoagulation. Current Visit: Yes (3) Aortic stenosis Status: Acute Assessment and plan: Due to aortic stenosis want to avoid dehydration. Currently in heart failure most likely due to valvular disease. Current Visit: Yes (4) CHF (congestive heart failure) Status: Acute Assessment and plan: Patient had an echocardiogram which showed a normal EF but has severe valvular disease most likely causing diastolic congestive heart failure. Will diurese gently with Lasix. Would avoid dehydration due to aortic stenosis. CODE STATUS discussed with patient by nursing and he requested to be a DNR. Current Visit: No (5) Atrial fib/flutter, transient Status: Acute Assessment and plan: Diltiazem p.o. twice daily Current Visit: No (6) Hypertension Status: Chronic Assessment and plan: Need home medicines Current Visit: No History of Present Illness Chief complaint: sob History of present illness: Mr. Keating is a 86 year old male who presents to the ED at [place] by EMS with c/o progressive sob with wheezing. Using his nebulizer machine at home. Denies any chest pain but is very sob. Chronic leg swelling with US shows LLE dvt despite INR therapeutic at [place]. NO pe found on Chest ct only pulmonary edema. He reports SOB with any kind of exertion but denies a fever, chills or a cough. Home Medications Medication Instructions Recorded Confirmed Type Atenolol 25 mg PO DAILY 04/01/17 04/01/17 History Carboxymethylcellulose Sodium 1 drop BOTH EYES DAILY PRN 04/01/17 04/01/17 History [Refresh Tears] Digoxin 125 mcg PO QOTHER DAY 04/01/17 04/01/17 History Esomeprazole Magnesium [Nexium] 40 mg PO DAILY 04/01/17 04/01/17 History Fluticasone 50 Mcg Nasal [place] 1 spray BOTH NARES DAILY PRN 04/01/17 04/01/17 History [Flonase Nasal [place]] Sertraline HCl 50 mg PO DAILY 04/01/17 04/01/17 History Temazepam [Restoril] 15 mg PO BEDTIME 04/01/17 04/01/17 History Thyroid [[place] Thyroid] 120 mg PO DAILY@0700 04/01/17 04/01/17 History Tiotropium Inhalation [Spiriva 18 mcg INH DAILY 04/01/17 04/01/17 History Handihaler] Warfarin [Coumadin] 5 mg PO DAILY@1800 04/01/17 04/01/17 History Albuterol Sulfate [Albuterol Neb] 0.63 mg RESP TX TID #60 neb 04/04/17 Rx Aspirin EC Tab 81 mg PO DAILY tablet 04/04/17 Rx Diltiazem Cd Cap [Cardizem CD] 120 mg PO BID #60 capsule 04/04/17 Rx Warfarin Sodium 7.5 mg PO SUMOFR #0 04/04/17 04/01/17 Rx Allergies Allergy/AdvReac Type Severity Reaction Status Date / Time No Known Allergies Allergy Verified 04/28/17 13:27 Medical,Surgical,& Family Hx - Medical History Cardio: History of: Cardiac Dysrhythmia, Hypertension, MO (MO?) Neurology: History of: Cerebrovascular Accident, Dementia Endocrine: History of: Dyslipidemia, Thyroid Disorder Respiratory: History of: COPD Renal: History of: Renal Problems Gastrointestinal: History of: GERD, GI Problems (had feeding tube at one time) Musculoskeletal: History of: Musculoskeletal Problems (arthritis) Hematology: No history of: Bleeding Problems Other: History of: Miscellaneous Medical Problems (Arthritis, "heart problems") No history of: Cancer, HIV - Surgical History Cardiac Surgeries: Sugical HX of: Cardiac Catheterization Abdominal Surgeries: Surgical HX of: Appendectomy, Cholecystectomy - Family History Family History: Reports;: Family Cancer (mother "female cancer"), Family Stroke (mother,father) - Social History Smoking Status: Former smoker Frequency of Alcohol Use: None Marital Status: Single Lives With:: Children Functional capacity: independent ambulation - Constitutional Constitutional: Present: weight gain. Absent: fever(s), headache(s) - EENT Eyes: Absent: blurry vision, diplopia Ears: Absent: decreased hearing, ear discharge Nose, mouth and throat: Absent: headache(s), sore throat - Cardiovascular Cardiovascular: Present: dyspnea, dyspnea on exertion, edema. Absent: chest pain at rest - Respiratory Respiratory: Present: cough, dyspnea, dyspnea on exertion, wheezing - Gastrointestinal Gastrointestinal: Absent: abdominal pain, nausea, vomiting - Genitourinary Genitourinary: Absent: difficulty urinating, dysuria - Neurological Neurological: Absent: confusion, headache(s), syncope - Psychiatric Psychiatric: Present: depression. Absent: anxiety - Endocrine Endocrine: Present: fatigue. Absent: cold intolerance, heat intolerance - Hematologic/Lymphatic Hematologic/Lymphatic: Present: easy bleeding, easy bruising Exam - Constitutional Vitals: Period Temp Pulse Resp BP Sys/Abraham Pulse Ox Last 24 Hr 96.6 F-96.6 F 98-111 16-20 168-168/105-105 90-97 General appearance: normal weight, mild distress - Head Head exam: Present: normal inspection, normocephalic - Eye Eye exam: Present: EOMI, conjunctival injection Pupils: Present: JORDY, normal accommodation - ENT ENT exam: Present: normal exam, normal external ear exam - Neck Neck exam: Absent: lymphadenopathy, thyromegaly - Respiratory Respiratory exam: Present: decreased breath sounds, wheezes. Absent: rhonchi - Cardiovascular Cardiovascular exam: Present: irregular rhythm, systolic murmur - GI/Abdominal GI/Abdominal exam: Present: normal bowel sounds, soft. Absent: psoas sign, tenderness - Extremities Exam Extremities exam: Present: edema (left leg larger than right due to DVT) - Neurological Exam Neurological exam: Present: alert, oriented X3 (X2), CN II-XII intact, reflexes normal. Absent: motor sensory deficit - Psychiatric Psychiatric exam: Present: depressed, flat affect Results - Labs Labs: WBC 6.28, hemoglobin 11.6, platelets 153 sodium 140, potassium 4.4, chloride 106 , CO2 27, AST 23, ALT 25, total bili 0.7, creatinine 1.39, BUN 16, glucose 101, urine negative for infection, troponin less than 0.03, INR 2.1, d-dimer 0.84, proBNP 2209, magnesium 2 - EKG EKG shows: atrial fibrillation - Diagnostic Findings Procedure: Chest x-ray: report reviewed by me (Cardiomegaly pulmonary edema), CT - chest: report reviewed by me (No pulmonary emboli but does show congestive heart failure), Ultrasound: report reviewed by me (Ultrasound shows DVT in the left lower extremity involving the common femoral vein and superficial femoral pain), X-ray: report reviewed by me (EF 65% with 2+ aortic stenosis and 1+ aortic regurg with 1-2+ tricuspid regurg)
[2017-04-28 15:32] LABS: Apearance,Urine CLEAR (Clear); Bilirubin,Urine Negative (Negative); Blood, Urine Negative (Negative); Glucose,Urine (UA) Negative (Negative); Ketones,Urine Negative (Negative); Mucus,Urine Occasional /LPF (Occasional); Nitrite,Urine Negative (Negative); Protein,Urine Negative; RBC,Urine <1 /HPF (0-4); Urine Color Straw (Yellow); Urine Specific Gravity 1.041 (1.001-1.035); Urine Urobilinogen < 2.0 EU/DL (0.2-1.0); WBC,Urine <1 /HPF (0-6)
[2017-04-28] MEDS ORDERED: FLUTICASONE 50 MCG NASAL SPRAY 16 GM BOTTLE BOTH NARES PRN (16:30)
[2017-04-28] MEDS ORDERED: hydrALAZINE 20 MG/1 ML VIAL IV PRN (16:31)
[2017-04-28] MEDS ORDERED: LEVOFLOXACIN INJ 750 MG in PREMIX 1 EACH IV SCH (17:00)
[2017-04-28] MEDS: methylPREDNISolone SOD SUC 40 MG/1 ML VIAL IV SCH ×2 (17:01→23:59)
[2017-04-28] MEDS: FUROSEMIDE 40 MG/4 ML VIAL IV SCH (17:02)
[2017-04-28] MEDS: POTASSIUM CHLORIDE 20 MEQ TABLET PO SCH (17:04)
[2017-04-28] MEDS: DILTIAZEM CD 120 MG CAPSULE PO SCH ×2 (17:04→21:14)
[2017-04-28] MEDS: PANTOPRAZOLE 40 MG TABLET PO SCH (17:07)
[2017-04-28 17:12] LABS: Basophils # 0.1 10*3/uL (0.0-0.2); Basophils % 0.7 % (0.0-0.8); Eosinophils # 0.2 10*3/uL (0.0-0.87); Eosinophils % 3.1 % (0.00-10.9); Hematocrit 37.8 VOL% (42.0-52.0); Hemoglobin 12.7 GM/DL (14.0-18.0); Immature Granulocytes % 0.3 %; Immature Granulocytes Absolute 0.02 #; Lymphocytes # 1.9 10*3/uL (1.4-4.0); Lymphocytes % 27.7 % (21.2-54.2); Mean Corpuscular HGB Conc 33.6 GM/DL (32-36); Mean Corpuscular Hemoglobin 32 PG (27-34); Mean Corpuscular Volume 95.5 FL (87-102); Mean Platelet Volume 11.5 FL (9.6-12.0); Monocytes # 0.5 10*3/uL (0.11-0.8); Monocytes % 7.3 % (1.7-12.7); Neutrophils # 4.1 10*3/uL (1.4-7.4); Neutrophils % 60.9 % (38.7-73.9); Platelet Count 170 T/CUMM (130-400); Red Blood Count 3.96 MC/CUMM (3.8-5.5); Red Cell Distribution Width 15.2 % (9.3-17.3); White Blood Count 6.7 T/CUMM (4-12)
[2017-04-28 17:27] LABS: INR 1.9
[2017-04-28 17:31] LABS: PT Patient Result 21.3 SECS
[2017-04-28 17:38] LABS: Albumin 3.7 G/DL (3.4-5.0); Bilirubin,Total 0.9 MG/DL (0.2-1.0); Calcium 8.9 MG/DL (8.5-10.1); Free T4 (Free Thyroxine) 0.88 NG/DL (0.76-1.46); Magnesium 2.3 MG/DL (1.8-2.4); Osmolality,Calculated 282.3 MOS/KG (273-304); Potassium 4.8 MMOL/L (3.5-5.1); Thyroid Stimulating Hormone 4.55 uIU/ml (0.358-3.74); Total Protein 7.2 G/DL (6.4-8.3); Troponin I Only 0.036 NG/ML (0.00-0.045)
[2017-04-28] MEDS: ALBUTEROL/IPRATROPIUM 3 ML NEB RESP TX SCH (20:11)
[2017-04-28] MEDS ORDERED: FAMOTIDINE 20 MG TABLET PO SCH (21:00)
[2017-04-28] MEDS: TEMAZEPAM 15 MG CAPSULE PO SCH (21:14)
[2017-04-28] MEDS: WARFARIN 5 MG TABLET PO SCH (21:17)
[2017-04-29] MEDS: ALBUTEROL/IPRATROPIUM 3 ML NEB RESP TX SCH ×4 (00:59→13:57)
[2017-04-29] MEDS: methylPREDNISolone SOD SUC 40 MG/1 ML VIAL IV SCH ×4 (04:54→21:51)
[2017-04-29 05:24] LABS: Basophils % 0.2 % (0.0-0.8); Hematocrit 37.9 VOL% (42.0-52.0); Hemoglobin 12.5 GM/DL (14.0-18.0); Immature Granulocytes % 0.4 %; Immature Granulocytes Absolute 0.02 #; Lymphocytes # 0.7 10*3/uL (1.4-4.0); Lymphocytes % 15.5 % (21.2-54.2); Mean Corpuscular Hemoglobin 31 PG (27-34); Mean Corpuscular Volume 93.6 FL (87-102); Mean Platelet Volume 12.1 FL (9.6-12.0); Monocytes # 0.1 10*3/uL (0.11-0.8); Neutrophils # 3.7 10*3/uL (1.4-7.4); Neutrophils % 81.9 % (38.7-73.9); Platelet Count 164 T/CUMM (130-400); Red Blood Count 4.05 MC/CUMM (3.8-5.5); White Blood Count 4.5 T/CUMM (4-12)
[2017-04-29 05:49] LABS: Calcium 8.7 MG/DL (8.5-10.1); Osmolality,Calculated 280.5 MOS/KG (273-304); Potassium 4.9 MMOL/L (3.5-5.1)
[2017-04-29 06:03] LABS: INR 1.9
--- NOTE | 2017-04-29 06:04 | EKG Report ---
Stationary ECG Study 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
--- NOTE | 2017-04-29 06:37 | EKG Report ---
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
--- NOTE | 2017-04-29 07:39 | Physician Query Form ---
CLICK EDIT DOCUMENT TO SELECT QUERY ANSWER --> OK --> SIGN Kaylin Stuart RN, CCDS Certified Clinical Tele Grout Sewer Line Repairer W) [phone] (f) [phone] [email or web address] PROVIDERS: Make your selection(s) from the choices in EACH section by typing an "x" and enter comments in the comment section. Please use your independent medical judgment in providing your response. This request does not imply that any particular answer is desired or expected. CLINICAL INDICATORS: (Providers should not edit this section) Medical record indicates that the patient was admitted with CHF, History "Renal Failure", creatinine of 1.40# and GFR of 58#. on IV Lasix Clarify which of the following most accurately represents the patient's renal status: ( ) Acute kidney injury (non-traumatic) ( ) Acute renal failure ( ) Acute renal failure with underlying Chronic Kidney Disease (CKD) - please provide stage below ( ) Acute renal failure with pathological renal lesion ( ) Acute renal failure with necrosis ( ) tubular ( ) medullary ( ) cortical (x ) CKD - please provide stage below ( ) End Stage Renal Disease ( ) Acute interstitial nephritis ( ) Hepatorenal syndrome ( ) Other, please specify: ( ) Clinically unable to determine Chronic Kidney Disease Stages Source: National Kidney Disease Foundation ( ) Stage I (eGFR > or = 90) ( ) Stage II (eGFR 60 - 89) (x ) Stage III (eGFR 30 - 59) ( ) Stage IV (eGFR 15 - 29) ( ) Stage V (eGFR < 15 or dialysis) COMMENTS: PLEASE ALSO DOCUMENT RESPONSE IN PROGRESS NOTES AND/OR DISCHARGE SUMMARY Use of terms such as suspected, likely, or probable (associated with a specific diagnosis that is being evaluated, monitored, or treated as if it exists) are acceptable and can be restated in the discharge summary if not ruled out. MTDD
[2017-04-29] MEDS: cefTRIAXone 1,000 MG in SODIUM CHLORIDE 0.9% 100 ML IV SCH (10:06)
[2017-04-29] MEDS: DILTIAZEM CD 120 MG CAPSULE PO SCH ×2 (10:06→21:50)
[2017-04-29] MEDS: PANTOPRAZOLE 40 MG TABLET PO SCH (10:07)
[2017-04-29] MEDS: POTASSIUM CHLORIDE 20 MEQ TABLET PO SCH (10:07)
[2017-04-29] MEDS: ASPIRIN EC 81 MG TABLET PO SCH (10:08)
[2017-04-29] MEDS: FUROSEMIDE 40 MG/4 ML VIAL IV SCH ×2 (10:10→17:17)
[2017-04-29] MEDS: WARFARIN 5 MG TABLET PO SCH (18:32)
[2017-04-29] MEDS ORDERED: WARFARIN 2.5 MG TABLET PO ONE (18:33)
--- NOTE | 2017-04-29 18:36 | Hospitalist Progress Note ---
Assessment and Plan (1) Hypertension Status: Chronic Current Visit: No Qualifiers: Hypertension type: essential hypertension Qualified Code(s): I10 - Essential (primary) hypertension (2) Congestive heart failure Status: Acute Assessment and plan: Significantly improved with IV Lasix. Echo from April 01 shows Technically difficult study 3+ left atrial enlargement 1-2+ concentric LVH Normal LV systolic function with ejection fraction estimated be 65% without obvious segmental wall motion normality 2+ aortic stenosis (mean and peak gradients of 12/29 mmHg), and 1+ aortic regurgitation 1-2+ tricuspid regurgitation with RVSP 37 mmHg plus RAP Irregular rhythm noted Current Visit: Yes Qualifiers: Congestive heart failure type: diastolic Congestive heart failure chronicity: acute on chronic Qualified Code(s): I50.33 - Acute on chronic diastolic (congestive) heart failure (3) Chronic anticoagulation Status: Acute Current Visit: Yes (4) DVT (deep venous thrombosis) Status: Acute Current Visit: Yes (5) Aortic stenosis Status: Acute Current Visit: Yes Hospitalist: Subjective Interval history: Patient seen and examined. No acute events overnight. Case discussed with nursing staff. Labs reviewed. Case discussed with patient and his family at the bedside. He was admitted yesterday with shortness of breath. I believe this to be related to congestive heart failure. He has improved significantly with IV Lasix. Today he has no wheezing. He has chronic lower extremity DVTs and is anticoagulated with Coumadin. His INR was 1.9. I have ordered an extra 2.5 mg by mouth tonight. He is interested in going home tomorrow. Echo from March 2017 shows Technically difficult study 3+ left atrial enlargement 1-2+ concentric LVH Normal LV systolic function with ejection fraction estimated be 65% without obvious segmental wall motion normality 2+ aortic stenosis (mean and peak gradients of 12/29 mmHg), and 1+ aortic regurgitation 1-2+ tricuspid regurgitation with RVSP 37 mmHg plus RAP Irregular rhythm noted Exam - Constitutional Vitals: Period Temp Pulse Resp BP Sys/Abraham Pulse Ox Last 24 Hr 97.0 F-97.6 F 57-119 16-22 114-147/69-93 96-100 Exam: Constitutional System: No distress. No tremulousness. Head: Normocephalic, atraumatic. Ears, Nose and Throat System: No pain or tenderness. No epistaxis or discharge Eyes System: Pupils equal, round, and reactive. Extraocular muscles intact. Neck: Supple, without adenopathy, No jugular venous distention. Respiratory System: Chest clear to auscultation. Cardiovascular System: Heart with regular rate and rhythm. Systolic murmur noted. GI System: Abdomen soft, nontender. Normo active bowel sounds present. Musculoskeletal System: limbs with bilateral pedal edema. Full distal pulses. Chronic stasis changes noted. No acute redness or pain. Improving edema. Neurological System: No discernable sensory deficit. No aphasia Psychiatric System: Conversation is rational Results - Labs CBC & BMP: 04/29/17 04:08 04/29/17 04:08 Lab Results: I have reviewed the past 24 hour labs Specialty Discharge - Follow Up or Referrals
[2017-04-29] MEDS: IPRATROPIUM 500 MCG/2.5 ML NEB RESP TX SCH (20:59)
[2017-04-29] MEDS: TEMAZEPAM 15 MG CAPSULE PO SCH (21:51)
[2017-04-30] MEDS: ALBUTEROL/IPRATROPIUM 3 ML NEB RESP TX SCH ×3 (01:19→13:42)
[2017-04-30] MEDS: methylPREDNISolone SOD SUC 40 MG/1 ML VIAL IV SCH ×3 (05:19→16:22)
[2017-04-30 06:08] LABS: INR 1.9; PT Patient Result 20.8 SECS
[2017-04-30] MEDS: IPRATROPIUM 500 MCG/2.5 ML NEB RESP TX SCH ×2 (07:05→13:42)
[2017-04-30] MEDS: DILTIAZEM CD 120 MG CAPSULE PO SCH (08:27)
[2017-04-30] MEDS: FUROSEMIDE 40 MG/4 ML VIAL IV SCH ×2 (08:28→16:18)
[2017-04-30] MEDS: ASPIRIN EC 81 MG TABLET PO SCH (08:28)
[2017-04-30] MEDS: POTASSIUM CHLORIDE 20 MEQ TABLET PO SCH (08:28)
[2017-04-30] MEDS: PANTOPRAZOLE 40 MG TABLET PO SCH (08:28)
[2017-04-30] MEDS: cefTRIAXone 1,000 MG in SODIUM CHLORIDE 0.9% 100 ML IV SCH (08:35)
[2017-04-30 17:04] VITALS: BP 141/78
--- NOTE | 2017-04-30 18:04 | Discharge Summary ---
Hospital Course - Hospital Course Hospital Course: 86 year old WM who presented to ED at [place] by EMS with c/o progressive sob with wheezing due to acute on chronic diastolic CHF exacerbation . He had chronic leg swelling with US showing LLE dvt despite INR therapeutic. No PE found on Chest CT, only pulmonary edema. He improved with IV Lasix and his breathing is much better. He has no further dyspnea. He has reached maximal hospital benefit and being discharged home in improved and stable condition. - Time spent with patient Time with patient DS: Less than 30 minutes Diagnosis - Discharge Diagnosis (1) CHF (congestive heart failure) Status: Resolved Specialty Discharge - Follow Up or Referrals Discharge Plan - Discharge Data Condition at Discharge: Stable Discharge Diet: low salt diet Activity: resume usual activities as tolerated Hygiene: no restrictions - Discharge Medications New Diltiazem Cd Cap [Cardizem CD] 120 mg PO BID #60 capsule Continue Tiotropium Inhalation [Spiriva Handihaler] 18 mcg INH DAILY Warfarin [Coumadin] 5 mg PO QPM Fluticasone 50 Mcg Nasal [place] [Flonase Nasal [place]] 1 spray BOTH NARES DAILY PRN PRN Reason: Nasal Congestion Albuterol Sulfate [Albuterol Neb] 0.63 mg INH TID PRN PRN Reason: Shortness Of Breath Temazepam [Restoril] 15 mg PO BEDTIME Famotidine 10 mg PO DAILY Aspirin EC Tab 81 mg PO QAM - Follow Up or Referral - Forms/Instructions Instructions: Warfarin (By mouth), Cigarette Smoking and Your Health (GEN), How to Stop Smoking, Maintenance Shop Manager (GEN), COPD, Maintenance Shop Manager (GEN), COPD Exacerbation, Maintenance Shop Manager (GEN) Exam - Constitutional Vitals: Period Temp Pulse Resp BP Sys/Abraham Pulse Ox Last 24 Hr 97.5 F-98 F 41-95 18-20 114-148/59-86 82-119 Exam: General: No Acute Distress HEENT: Normocephalic, atraumatic, Extra ocular movements intact Neck: Supple, No JVD Chest: Clear to auscultation B/L CV: S1 + S2 audible with ejection systolic murmur at left sternal edge Abd: soft, NT, Non-distended, BS + Ext: No edema Skin: No purpura, bruising or rash Rheumatologic: No Joint deformities Neurologic: Strength 5/5 all extremities, no gross sensory deficits Discharge Results Procedures and tests throughout hospitalization: Pending Orders 04/28/17 17:00 Blood Culture Stat Labs on day of discharge: Labs from last 24 hours 04/30/17 05:41 INR 1.9 PT Patient/Control Mix 20.8 Preliminary micro results at discharge 04/28/17 17:00 Blood Culture - Preliminary Blood No growth at 1 day 04/28/17 17:00 Blood Culture - Preliminary Blood No growth at 1 day DS: Provider Date of admission: 04/28/17 14:12 Primary care physician: . No PCP Attending physician on admission: Leslie Davies MD Consults: 04/28/17 14:49 Consult to Pulmonary Rehabilitation [CONS] Routine Reason for Pulmonary Rehabilitation: COPD Discharging clinician: Faith Tineo MD
[2017-04-30] MEDS: WARFARIN 5 MG TABLET PO SCH (18:32)
== END 2017-04-30 18:48 | disposition home health service (06) | DRG 291 ==
LOC: EDUNIT# → N.ED 13:18 → N.EDINP 14:12 → SUATTDRO 14:12 → N.TELEN 16:25
PROVIDERS: ADMIT Internal Medicine; ATTEND Hospitalist

== ENCOUNTER 2018-09-26 23:00 | Inpatient (IN) ==
[2018-09-27] MEDS ORDERED: ONDANSETRON 4 MG/2 ML VIAL IV PRN (00:28)
[2018-09-27] MEDS ORDERED: ACETAMINOPHEN 325 MG TABLET PO PRN (01:37)
[2018-09-27] MEDS ORDERED: LORazepam 0.5 MG TABLET PO PRN (01:43)
[2018-09-27] MEDS ORDERED: ALBUTEROL 2.5 MG/3 ML NEB RESP TX PRN (01:45)
[2018-09-27 02:32] LABS: Troponin I 0.072 NG/ML (0.00-0.045)
[2018-09-27 02:32] LABS: Albumin 3.3 G/DL (3.4-5.0); Bilirubin,Total 1.3 MG/DL (0.2-1.0); Calcium 8.5 MG/DL (8.5-10.1); Osmolality,Calculated 279.4 MOS/KG (273-304); Thyroid Stimulating Hormone 4.12 uIU/ml (0.358-3.74); Total Protein 7.4 G/DL (6.4-8.3)
[2018-09-27 02:35] LABS: INR 2.5
[2018-09-27 02:37] LABS: PT Patient Result 26.8 SECS
[2018-09-27 02:41] LABS: Basophils # 0.1 10*3/uL (0.0-0.2); Basophils % 0.8 % (0.0-0.8); Eosinophils # 0.2 10*3/uL (0.0-0.87); Eosinophils % 2.2 % (0.00-10.9); Hematocrit 38.3 VOL% (42.0-52.0); Immature Granulocytes % 0.3 %; Immature Granulocytes Absolute 0.02 #; Lymphocytes # 0.6 10*3/uL (1.4-4.0); Lymphocytes % 8.2 % (21.2-54.2); Mean Corpuscular HGB Conc 31.3 GM/DL (32-36); Mean Corpuscular Hemoglobin 30 PG (27-34); Mean Platelet Volume 12.4 FL (9.6-12.0); Monocytes # 0.7 10*3/uL (0.11-0.8); Monocytes % 9.1 % (1.7-12.7); Neutrophils # 6.1 10*3/uL (1.4-7.4); Neutrophils % 79.4 % (38.7-73.9); Platelet Count 157 T/CUMM (130-400); Red Blood Count 3.95 MC/CUMM (3.8-5.5); Red Cell Distribution Width 14.1 % (9.3-17.3); White Blood Count 7.7 T/CUMM (4-12)
[2018-09-27] MEDS: methylPREDNISolone SOD SUC 40 MG/1 ML VIAL IV SCH ×2 (03:00→20:49)
[2018-09-27] MEDS: cefTRIAXone 1,000 MG in SYRINGE 1 EACH IV SCH (03:05)
[2018-09-27] MEDS: AZITHROMYCIN INJ 500 MG in SODIUM CHLORIDE 0.9% 250 ML IV SCH (04:28)
[2018-09-27 05:41] LABS: Apearance,Urine Slightly Hazy (Clear); Bilirubin,Urine Negative (Negative); Blood, Urine Large mg/dL (Negative); Glucose,Urine (UA) Negative (Negative); Ketones,Urine Negative (Negative); Mucus,Urine Occasional /LPF (Occasional); Nitrite,Urine Negative (Negative); Protein,Urine Negative; RBC,Urine 210 /HPF (0-4); Urine Color Yellow (Yellow); Urine Specific Gravity 1.011 (1.001-1.035); Urine Urobilinogen < 2.0 EU/DL (0.2-1.0)
[2018-09-27] MEDS ORDERED: MAGNESIUM SULF RIDER 4 GM in PREMIX 1 EACH IV PRN (06:09)
[2018-09-27] MEDS ORDERED: MAGNESIUM SULF RIDER 2 GM in PREMIX 1 EACH IV PRN (06:09)
[2018-09-27] MEDS ORDERED: IPRATROPIUM 500 MCG/2.5 ML NEB RESP TX SCH (07:00)
[2018-09-27] MEDS: ALBUTEROL/IPRATROPIUM 3 ML NEB RESP TX SCH ×3 (07:18→19:50)
[2018-09-27] MEDS: ESCITALOPRAM 10 MG TABLET PO SCH (09:15)
[2018-09-27] MEDS: FUROSEMIDE 40 MG TABLET PO SCH (09:15)
[2018-09-27] MEDS: FAMOTIDINE 20 MG TABLET PO SCH (09:15)
[2018-09-27] MEDS: DILTIAZEM CD 180 MG CAPSULE PO SCH (09:15)
[2018-09-27] MEDS: CLOTRIMAZOLE 1% CREAM 15 GM TUBE TOP SCH ×2 (16:37→20:48)
[2018-09-27] MEDS: WARFARIN 5 MG TABLET PO SCH (17:19)
[2018-09-27] MEDS: DILTIAZEM CD 120 MG CAPSULE PO SCH (20:47)
[2018-09-27] MEDS: traZODone 50 MG TABLET PO SCH (20:48)
[2018-09-27] MEDS: QUEtiapine 25 MG TABLET PO SCH (20:48)
[2018-09-27] MEDS: TEMAZEPAM 15 MG CAPSULE PO SCH (20:48)
[2018-09-28] MEDS: ALBUTEROL/IPRATROPIUM 3 ML NEB RESP TX SCH ×4 (00:40→19:59)
[2018-09-28 04:53] LABS: Hematocrit 35.5 VOL% (42.0-52.0); Hemoglobin 11.4 GM/DL (14.0-18.0); Immature Granulocytes % 0.7 %; Immature Granulocytes Absolute 0.04 #; Lymphocytes # 0.4 10*3/uL (1.4-4.0); Lymphocytes % 8.1 % (21.2-54.2); Mean Corpuscular HGB Conc 32.1 GM/DL (32-36); Mean Corpuscular Hemoglobin 31 PG (27-34); Mean Corpuscular Volume 96.5 FL (87-102); Mean Platelet Volume 11.7 FL (9.6-12.0); Monocytes # 0.2 10*3/uL (0.11-0.8); Monocytes % 3.9 % (1.7-12.7); Neutrophils # 4.8 10*3/uL (1.4-7.4); Neutrophils % 87.3 % (38.7-73.9); Platelet Count 152 T/CUMM (130-400); Red Blood Count 3.68 MC/CUMM (3.8-5.5); Red Cell Distribution Width 13.8 % (9.3-17.3); White Blood Count 5.5 T/CUMM (4-12)
[2018-09-28 05:16] LABS: Calcium 8.4 MG/DL (8.5-10.1); Osmolality,Calculated 283.5 MOS/KG (273-304); Potassium 4.5 MMOL/L (3.5-5.1)
[2018-09-28 05:31] LABS: PT Patient Result 21.3 SECS
[2018-09-28] MEDS: DILTIAZEM CD 180 MG CAPSULE PO SCH (09:07)
[2018-09-28] MEDS: FAMOTIDINE 20 MG TABLET PO SCH (09:07)
[2018-09-28] MEDS: ESCITALOPRAM 10 MG TABLET PO SCH (09:07)
[2018-09-28] MEDS: cefTRIAXone 1,000 MG in SYRINGE 1 EACH IV SCH (09:08)
[2018-09-28] MEDS: DOCUSATE SODIUM 100 MG CAPSULE PO PRN (09:08)
[2018-09-28] MEDS: methylPREDNISolone SOD SUC 40 MG/1 ML VIAL IV SCH ×2 (09:08→21:55)
[2018-09-28] MEDS: CLOTRIMAZOLE 1% CREAM 15 GM TUBE TOP SCH ×2 (09:08→22:10)
[2018-09-28] MEDS: FUROSEMIDE 40 MG TABLET PO SCH (09:08)
[2018-09-28] MEDS: AZITHROMYCIN INJ 500 MG in SODIUM CHLORIDE 0.9% 250 ML IV SCH (10:23)
[2018-09-28] MEDS: WARFARIN 5 MG TABLET PO SCH (17:17)
[2018-09-28] MEDS: DILTIAZEM CD 120 MG CAPSULE PO SCH (22:03)
[2018-09-28] MEDS: traZODone 50 MG TABLET PO SCH (22:03)
[2018-09-28] MEDS: QUEtiapine 25 MG TABLET PO SCH (22:03)
[2018-09-28] MEDS: TEMAZEPAM 15 MG CAPSULE PO SCH (22:04)
[2018-09-29] MEDS: ALBUTEROL/IPRATROPIUM 3 ML NEB RESP TX SCH ×3 (00:24→11:59)
[2018-09-29 05:52] LABS: Hematocrit 36.5 VOL% (42.0-52.0); Hemoglobin 11.7 GM/DL (14.0-18.0); Immature Granulocytes % 0.6 %; Immature Granulocytes Absolute 0.05 #; Lymphocytes # 0.6 10*3/uL (1.4-4.0); Lymphocytes % 7.7 % (21.2-54.2); Mean Corpuscular HGB Conc 32.1 GM/DL (32-36); Mean Corpuscular Hemoglobin 31 PG (27-34); Mean Corpuscular Volume 95.8 FL (87-102); Mean Platelet Volume 11.5 FL (9.6-12.0); Monocytes # 0.4 10*3/uL (0.11-0.8); Monocytes % 4.9 % (1.7-12.7); Neutrophils # 6.9 10*3/uL (1.4-7.4); Neutrophils % 86.8 % (38.7-73.9); Platelet Count 174 T/CUMM (130-400); Red Blood Count 3.81 MC/CUMM (3.8-5.5); Red Cell Distribution Width 13.9 % (9.3-17.3)
[2018-09-29 06:04] LABS: INR 2.3
[2018-09-29 06:11] LABS: PT Patient Result 25.3 SECS
[2018-09-29 06:25] LABS: Calcium 8.6 MG/DL (8.5-10.1); Osmolality,Calculated 289.5 MOS/KG (273-304); Potassium 4.4 MMOL/L (3.5-5.1)
[2018-09-29] MEDS: FUROSEMIDE 40 MG TABLET PO SCH (08:57)
[2018-09-29] MEDS: ESCITALOPRAM 10 MG TABLET PO SCH (08:57)
[2018-09-29] MEDS: DILTIAZEM CD 180 MG CAPSULE PO SCH (08:58)
[2018-09-29] MEDS: DOCUSATE SODIUM 100 MG CAPSULE PO PRN (08:58)
[2018-09-29] MEDS: CLOTRIMAZOLE 1% CREAM 15 GM TUBE TOP SCH (08:59)
[2018-09-29] MEDS: methylPREDNISolone SOD SUC 40 MG/1 ML VIAL IV SCH (08:59)
[2018-09-29] MEDS: FAMOTIDINE 20 MG TABLET PO SCH (08:59)
[2018-09-29] MEDS: cefTRIAXone 1,000 MG in SYRINGE 1 EACH IV SCH (09:01)
[2018-09-29] MEDS: AZITHROMYCIN INJ 500 MG in SODIUM CHLORIDE 0.9% 250 ML IV SCH (09:03)
[2018-09-29 16:11] VITALS: BP 127/88
== END 2018-09-29 17:07 | disposition home or self-care (01) | DRG 191 ==
LOC: SUATTDRO 09-27 00:02 → N.2E 09-27 00:02
PROVIDERS: ADMIT Internal Medicine; ATTEND Hospitalist